=== PATIENT | male | born 1945 | race Caucasian/White ===

== ENCOUNTER 2020-04-17 14:39 | Observation (INO) ==
[2020-04-17 14:51] VITALS: BMI 32.4
--- NOTE | 2020-04-17 15:04 | DR.PSYCH ---
HPI Time Seen Time Seen by Provider: 04/17/20 15:03 PCP Primary Care Physician: SHELL HPI Comment HPI Comment: PATIENT IS 74YR OLD MALE WITH HISTORY OF CAD, HTN AND AND DM IN ER WITH AUDITORY AND VISUAL HALLUCINATIONSTIMES ONE WEEK AND WAS AGGRESSIVE TO HIS YESTERDAY. DENIES TRAUMA, CHEST PAIN OR FEVER. NO HISTORY OF MENTAL HEALTH DISORDER. NO HISTORY OF SUSBSTANCE ABUSE. PATIENTS IN ER WITH HIM AM\ND GIVING HISTORY. Complaint Chief Complaint Doctors Comments: HERE VIA EMS WITH HALLUCINATIONS AND AMS AND BEING AGGRESSIVE TO HIS YESTERDAY. Chief Complaint:: PT. WAS BROUGHT IN PER [facility] WITH C/O AUDITORY AND VISUAL HALLUCINATIONS. PT. BECAME AGGRESSIVE TOWARDS SPOUSE YESTERDAY BUT DOES NOT REMEMBER EVENT. PT. STATES HE HAS BEEN EXPERIENCING THESE HALLUCINATIONS X 1 WEEK. COVID-19 Coronavirus risk:travel/contact w/high risk person: No Has patient experienced Coronavirus symptoms: No Reviewed Nurses Notes Review: Yes Source History Provided: Patient and EMS Mode of Arrival Mode of Arrival: EMS Timing Onset of Chief Complaint: 04/10/20 Came on: Suddenly Duration Duration: Constant Duration: Days Context Ideation: None Plan: None Stressors: None History of: None Quality Quality: None Hallucinations: Visual and Auditory Severity Severity: Able to care for self Associated signs and symptoms Intoxification: None PMH PMH Past Medical History: Yes Past Medical History: Coronary Artery Disease, Diabetes, Dyslipidemia and Hypertension Past Surgical History: Yes Surgical History: Angioplasty/Stents, Appendectomy, Cholecystectomy and Tonsillectomy Family History History of Family Medical Conditions: Yes Family Medical History: Diabetes Mellitus, Coronary Artery Disease and Hypertension Social History Does patient currently use any type of tobacco product: No Have you used tobacco products in the last 12 months: No Type of Tobacco Use: None Does any household member use tobacco: No Alcohol Use: None Do you use any recreational Drugs:: No Lives With: Spouse Lives Where: Home Travel Risk Coronavirus risk:travel/contact w/high risk person: No Has patient experienced Coronavirus symptoms: No Infectious screening In the last 2 months have you had wt loss of >10#?: NO Have you had fever, night sweats or hemotysis?: No Have you traveled outside the country in the last 6 months?: No Isolation: Standard ROS Review of Systems Constitutional: No Symptoms Reported, See HPI, Weakness and Fatigue; negative Fever Eyes: See HPI ENTM: No Symptoms Reported and See HPI; negative Ear Pain (RINGING IN EARS FOR MANY YEARS.), Nose Discharge and Nose Congestion Respiratoy: No Symptoms Reported and See HPI; negative Moist Cough, Short of Breath and Wheezing Cardiovascular: No Symptoms Reported and See HPI; negative Chest Pain and Palpitations Gastrointestinal/Abdominal: No Symptoms Reported and See HPI; negative Abdominal Pain, Diarrhea, Nausea and Vomiting Genitourinary: No Symptoms Reported and See HPI; negative Dysuria, Frequency and Hematuria Neurological: No Symptoms Reported; negative Headache, Weakness and Dizziness Musculoskeletal: See HPI and Back Pain (CHRONIC BACK PAIN WITH INDWELLING STIMULATOR LOWER BACK.) Integumentary: No Symptoms Reported and See HPI; negative Change in Color, Rash and Juandice Hematologic/Lymphatic: See HPI and Easy Bruising; negative Swollen Glands Endocrine: No Symptoms Reported and See HPI; negative Increased Thirst and Inc reased Urine Psychiatric: No Symptoms Reported and See HPI All Other Systems: Reviewed and Negative PE Vitals Vitals: Temperature 97.6 F Pulse Rate 84 Respiratory Rate 17 Blood Pressure 123/89 O2 Sat by Pulse Oximetry 95 General Limitations: No Limitations General Appearance: Alert and In No Apparent Distress Head Head Exam: Normal Inspection and Atraumatic Head Exam Physical: Other (NONE NOTED.) Eyes Eye exam: Normal Appearance, PERRL and EOMI; negative Scleral Icterus and Conjunctival Injection Pupils: Regular, Round: Bilateral and Reactive: Bilateral Sclera/Conjunctival: Normal Inspection: Bilateral ENT ENT Exam: Normal Exam, Normal Oropharynx, Normal External Ear Exam and TM's Normal Bilaterally Neck Neck Exam: Normal Inspection and Trachea Midline; negative Tenderness and Lymphadenopathy Chest Chest Inspection: Normal Inspection and Symmetric Chest Wall Rise; negative Tenderness Respiratory Respiratory Exam: Normal Lung Sounds Bilat; negative Accessory Muscle Use, Chest Wall Tenderness and Respiratory Distress Respiratory Exam: Bilateral: Rhonchi and Lower: Rhonchi Cardiovascular Cardiovascular Exam: Regular Rate, Normal Rhythm and Normal Heart Sounds; negative Systolic Murmur and Diastolic Murmur Abdominal Exam Abdominal Exam: Normal Inspection, Normal Bowel Sounds and Soft; negative Tenderness Extremities Extremities Exam: Normal Inspection and Normal Capillary Refill; negative Tenderness, Edema and Calf Tenderness Back Back Exam: Normal Inspection, Tenderness, Paraspinal Tenderness and Vertebral Tenderness Neurologic Neurological Exam: Alert, Oriented X3 and CN II-XII Intact; negative Motor Sensory Deficit Patient Oriented To: Person, Place and Time Speech: Fluid Speech Cranial Nerve Exam: EOM Function (II, III, IV, ): Normal, Facial Sensation (V): Normal, Facial Palsy (VII): Normal, Gag reflex (XI): Normal and Tongue Deviation: Normal Motor Strength - LUE: 5/5 Motor Strength - RUE: 5/5 Motor Strength - LLE: 5/5 Motor Strength - RLE: 5/5 Upper Motor Neuron Exam: Babinski Sign: Normal Psychiatric Psychiatric Exam: Normal Affect and Normal Mood Expanded Psychiatric Exam: Auditory Hallucinations and Visual Hallucinations Skin Skin Exam: Warm, Dry, Intact and Normal Color MDM Differential Diagnosis Differential diagnosis: Anxiety (HALLUCINATIONS.) COURSE Treatment Treatment: SEE ORDERS. PATIENT DISCUSSED WITH [facility], SEE NURSING NOTE. TO CALL IN AM. PATIENT WILL BE ADMITTED FOR OBSERVATION FOR NEW ONSET A FIB. Consultation Consultation Comments: DISCUSSED PATIENT WITH DR. NIEVES. HE WILL ADMIT PATIENT. Education/Counseling Education/Counseling: Patient and Family Educated On: Diagnosis ROR Labs Reviewed Laboratory Results Reviewed?: Yes Result Diagrams: 04/24/20 04:20 04/24/20 04:20 Laboratory: WBC 5.7 X10^3/uL (3.6-10.0) 04/17/20 15:05 RBC 4.10 X10^6/uL (4.7-6.0) L 04/17/20 15:05 Hgb 14.1 g/dL (13.5-18.0) 04/17/20 15:05 Hct 40.9 % (42.0-54.0) L 04/17/20 15:05 MCV 99.8 fL (80.0-100.0) 04/17/20 15:05 MCH 34.4 pg (27.0-34.0) H 04/17/20 15:05 MCHC 34.5 g/dL (33.0-35.0) 04/17/20 15:05 RDW 13.2 % (11.6-16.5) 04/17/20 15:05 Plt Count 86 X10^3/uL (150.0-450.0) L 04/17/20 15:05 MPV 8.0 fL (7.4-11.0) 04/17/20 15:05 Neut % (Auto) 61.5 % (42.0-75.0) 04/17/20 15:05 Lymph % (Auto) 27.6 % (21.0-51.0) 04/17/20 15:05 [place] % (Auto) 8.3 % (0.0-13.0) 04/17/20 15:05 Eos % (Auto) 1.4 % (0.9-2.9) 04/17/20 15:05 Baso % (Auto) 1.2 % (0.2-1.0) H 04/17/20 15:05 Neut # (Auto) 3.5 x10^3/uL (2.2-4.8) 04/17/20 15:05 Lymph # (Auto) 1.6 X10^3/uL (1.3-2.9) 04/17/20 15:05 [place] # (Auto) 0.5 x10^3/uL (0.3-0.8) 04/17/20 15:05 Eos # (Auto) 0.1 x10^3/uL (0.0-0.2) 04/17/20 15:05 Baso # (Auto) 0.1 X10^3/uL (0.0-0.1) 04/17/20 15:05 Absolute Nucleated RBC 0.0 /100WBC 04/17/20 15:05 Sodium 138 mmol/L (136-145) 04/17/20 15:05 Corrected Sodium 139 mmol/L (136-145) 04/17/20 15:05 Potassium 4.7 mmol/L (3.5-5.1) 04/17/20 15:05 Chloride 103 mmol/L (98-107) 04/17/20 15:05 Carbon Dioxide 28.2 mmol/L (21-32) 04/17/20 15:05 BUN 22 mg/dL (7-18) H 04/17/20 15:05 Creatinine 1.22 mg/dL (0.70-1.30) 04/17/20 15:05 Est GFR (MDRD) Af Amer > 60 (>60) 04/17/20 15:05 Est GFR (MDRD) Non-Af > 60 (>60) 04/17/20 15:05 Glucose 124 mg/dL (65-99) H 04/17/20 15:05 Calcium 8.7 mg/dL (8.5-10.1) 04/17/20 15:05 Corrected Calcium TNP 04/17/20 15:05 Total Bilirubin 1.00 mg/dL (0.2-1.0) 04/17/20 15:05 AST 19 Units/L (15-37) 04/17/20 15:05 ALT 33 Units/L (12-78) 04/17/20 15:05 Alkaline Phosphatase 56 Units/L (46-116) 04/17/20 15:05 Total Protein 6.9 g/dL (6.4-8.2) 04/17/20 15:05 Albumin 4.0 g/dL (3.4-5.0) 04/17/20 15:05 Globulin 2.9 g/dL (2.5-4.5) 04/17/20 15:05 Albumin/Globulin Ratio 1.4 Ratio (1.1-2.1) 04/17/20 15:05 Specimen Type Clean catch urine 04/17/20 15:37 Urine Color Dark yellow (YELLOW) 04/17/20 15:37 Urine Appearance Hazy (CLEAR) 04/17/20 15:37 Urine pH 5.0 (5.0 - 8.0) 04/17/20 15:37 Ur Specific [place] 1.025 (1.000-1.030) 04/17/20 15:37 Urine Protein 3+ (NEGATIVE) 04/17/20 15:37 Urine Glucose (UA) Negative (NEGATIVE) 04/17/20 15:37 Urine Ketones 1+ (NEGATIVE) 04/17/20 15:37 Urine Occult Blood Negative (NEGATIVE) 04/17/20 15:37 Urine Nitrite Negative (NEGATIVE) 04/17/20 15:37 Urine Bilirubin Negative (NEGATIVE) 04/17/20 15:37 Urine Urobilinogen 2+ (NORMAL) 04/17/20 15:37 Ur Leukocyte Esterase 1+ (NEGATIVE) 04/17/20 15:37 Urine RBC 0-2 /HPF (0-3) 04/17/20 15:37 Urine WBC 5-10 /HPF (0-5) A 04/17/20 15:37 Ur Squamous Epith Cells Moderate /HPF (NEGATIVE) 04/17/20 15:37 Calcium Oxalate Crystal Moderate /HPF (NEGATIVE) 04/17/20 15:37 Amorphous Sediment 2+ /HPF (NEGATIVE) 04/17/20 15:37 Urine Bacteria Negative /HPF (NEGATIVE) 04/17/20 15:37 Urine Mucus Moderate /HPF (NEGATIVE) 04/17/20 15:37 Ur Culture Indicated? No/not indicated 04/17/20 15:37 Salicylates < 2.8 mg/dL (2.8-20) L 04/17/20 15:05 Urine Opiates Screen Positive (NEG=<300) 04/17/20 15:37 Urine Methadone Screen Negative (NEG=<300) 04/17/20 15:37 Acetaminophen 0.0 ug/mL (10-30) L 04/17/20 15:05 Ur Barbiturates Screen Negative (NEG=<200) 04/17/20 15:37 Ur Phencyclidine Scrn Negative (NEG=<25) 04/17/20 15:37 Ur Amphetamines Screen Negative (NEG=<1000) 04/17/20 15:37 U Benzodiazepines Scrn Positive (NEG=<200) 04/17/20 15:37 Urine Cocaine Screen Negative (NEG=<300) 04/17/20 15:37 U Marijuana (THC) Screen Negative (NEG=<50) 04/17/20 15:37 Ethyl Alcohol mg/dL < 3 mg/dL (0-19.9) 04/17/20 15:05 SARS CoV-2 RNA Rapid MALIKA Positive (NEGATIVE) A 04/17/20 17:18 XRAY XRAY Interpreted by: Radiologist (REPORTS NOTED AND DISCUSSED WITH PATIENT.) and Self EKG Rate: 87 Rowan: Normal Rhythm: Afib Block: None Hypertrophy: None ST: Normal Opioid Opioid Risk Tool Age (Jah box if 16-45): No History of Preadolescent Sexual Abuse: No Total: 0 Total Score Risk Category: Low Risk Copyright: Jackson MALDONADO predicting aberrant behaviors Diagnosis Discharge Problem: New onset atrial fibrillation, UTI (urinary tract infection), Hallucination Instructions Instructions: Confusion Diabetes Mellitus and Sick Day Management Urinary Tract Infection, Adult, [id number] Atrial Fibrillation, [id number] Forms: Excuse From Work or School Precautions for COVID19 Patient Portal Social Distancing
[2020-04-17 15:14] LABS: BASOPHILS # (AUTO) 0.1 X10^3/uL (0.0-0.1); BASOPHILS % (AUTO) 1.2 % (0.2-1.0); EOSINOPHILS # (AUTO) 0.1 x10^3/uL (0.0-0.2); EOSINOPHILS % (AUTO) 1.4 % (0.9-2.9); HEMATOCRIT 40.9 % (42.0-54.0); HEMOGLOBIN 14.1 g/dL (13.5-18.0); LYMPHOCYTES # (AUTO) 1.6 X10^3/uL (1.3-2.9); LYMPHOCYTES % (AUTO) 27.6 % (21.0-51.0); MEAN CORPUSCULAR HEMOGLOBIN 34.4 pg (27.0-34.0); MEAN CORPUSCULAR HGB CONC 34.5 g/dL (33.0-35.0); MEAN CORPUSCULAR VOLUME 99.8 fL (80.0-100.0); MONOCYTES # (AUTO) 0.5 x10^3/uL (0.3-0.8); MONOCYTES % (AUTO) 8.3 % (0.0-13.0); NEUTROPHILS # (AUTO) 3.5 x10^3/uL (2.2-4.8); NEUTROPHILS % (AUTO) 61.5 % (42.0-75.0); PLATELET COUNT 86 X10^3/uL (150.0-450.0); RED CELL DISTRIBUTION WIDTH 13.2 % (11.6-16.5); WHITE BLOOD COUNT 5.7 X10^3/uL (3.6-10.0)
[2020-04-17 15:26] LABS: ALANINE AMINOTRANSFERASE 33 Units/L (12-78); ALKALINE PHOSPHATASE 56 Units/L (46-116); ASPARTATE AMINO TRANSFERASE 19 Units/L (15-37); BLOOD ALCOHOL < 3 mg/dL (0-19.9); BLOOD UREA NITROGEN 22 mg/dL (7-18); CALCIUM 8.7 mg/dL (8.5-10.1); CARBON DIOXIDE 28.2 mmol/L (21-32); CHLORIDE 103 mmol/L (98-107); COR NA(FOR HYPERGLY) 139 mmol/L (136-145); CREATININE 1.22 mg/dL (0.70-1.30); SODIUM 138 mmol/L (136-145); TOTAL PROTEIN 6.9 g/dL (6.4-8.2); eGFR NON BLACK RACES > 60 (>60)
[2020-04-17 15:30] LABS: SALICYLATE < 2.8 mg/dL (2.8-20)
[2020-04-17 16:28] LABS: BILIRUBIN,URINE NEGATIVE (NEGATIVE); BLOOD/HEMOGLOBIN,URINE NEGATIVE (NEGATIVE); GLUCOSE, URINE NEGATIVE (NEGATIVE); KETONES,URINE 1+ (NEGATIVE); LEUKOCYTE ESTERASE ,URINE 1+ (NEGATIVE); NITRITES,URINE NEGATIVE (NEGATIVE); PROTEIN,URINE 3+ (NEGATIVE); UROBILINOGEN,URINE 2+ (NORMAL)
[2020-04-17 16:42] LABS: APPEARANCE,URINE HAZY (CLEAR); COLOR,URINE DARK YELLOW (YELLOW)
[2020-04-17 16:43] LABS: AMORPHOUS SEDIMENT,UR 2+ /HPF (NEGATIVE); BACTERIA,URINE NEGATIVE /HPF (NEGATIVE); CALCIUM OXALATE CRYSTALS,UR MODERATE /HPF (NEGATIVE); MUCUS,URINE MODERATE /HPF (NEGATIVE); RBC,URINE 0-2 /HPF (0-3); SQUAMOUS EPITHELIAL CELL,UR MODERATE /HPF (NEGATIVE)
[2020-04-17] MEDS ORDERED: NITROSTAT SL PRN (22:18)
[2020-04-17] MEDS ORDERED: NS 1000 ML 1,000 ML ONE (22:24)
[2020-04-17] MEDS: NS 1000 ML 1,000 ML IV SCH (22:29)
[2020-04-17] MEDS: VALIUM PO SCH (23:17)
[2020-04-17] MEDS ORDERED: NS 100 ML IV + SPIKE MINIBAG* 100 ML IV ONE (23:18)
[2020-04-17] MEDS ORDERED: VALIUM ONE (23:18)
[2020-04-17] MEDS ORDERED: ROCEPHIN 1 GRAM IV PREMIX 1 G/50 ML IV.SOLN. IV SCH (23:45)
[2020-04-17 23:50] LABS: CKMB % 2.6 % (<4); CREATINE KINASE 76 Units/L (39-308); TROPONIN I < 0.02 ng/mL (0-1.5)
[2020-04-18 06:09] LABS: BASOPHILS % (AUTO) 0.6 % (0.2-1.0); EOSINOPHILS # (AUTO) 0.2 x10^3/uL (0.0-0.2); EOSINOPHILS % (AUTO) 2.7 % (0.9-2.9); HEMATOCRIT 39.7 % (42.0-54.0); HEMOGLOBIN 13.4 g/dL (13.5-18.0); LYMPHOCYTES # (AUTO) 2.2 X10^3/uL (1.3-2.9); LYMPHOCYTES % (AUTO) 40.6 % (21.0-51.0); MEAN CORPUSCULAR HEMOGLOBIN 33.7 pg (27.0-34.0); MEAN CORPUSCULAR HGB CONC 33.7 g/dL (33.0-35.0); MEAN PLATELET VOLUME 8.5 fL (7.4-11.0); MONOCYTES # (AUTO) 0.5 x10^3/uL (0.3-0.8); MONOCYTES % (AUTO) 8.8 % (0.0-13.0); NEUTROPHILS # (AUTO) 2.6 x10^3/uL (2.2-4.8); NEUTROPHILS % (AUTO) 47.3 % (42.0-75.0); PLATELET COUNT 80 X10^3/uL (150.0-450.0); RED BLOOD COUNT 3.97 X10^6/uL (4.7-6.0); RED CELL DISTRIBUTION WIDTH 13.4 % (11.6-16.5); WHITE BLOOD COUNT 5.5 X10^3/uL (3.6-10.0)
[2020-04-18 06:34] LABS: ALANINE AMINOTRANSFERASE 29 Units/L (12-78); ALBUMIN 3.6 g/dL (3.4-5.0); ALKALINE PHOSPHATASE 45 Units/L (46-116); ASPARTATE AMINO TRANSFERASE 20 Units/L (15-37); BLOOD UREA NITROGEN 19 mg/dL (7-18); CALCIUM 8.7 mg/dL (8.5-10.1); CARBON DIOXIDE 26.6 mmol/L (21-32); CHLORIDE 104 mmol/L (98-107); CKMB % 2.2 % (<4); COR NA(FOR HYPERGLY) 141 mmol/L (136-145); CREATINE KINASE 85 Units/L (39-308); CREATINE KINASE MB 1.9 ng/mL (0-4.0); CREATININE 0.93 mg/dL (0.70-1.30); MAGNESIUM 1.8 mg/dL (1.7-2.9); SODIUM 140 mmol/L (136-145); TOTAL PROTEIN 6.4 g/dL (6.4-8.2); TROPONIN I < 0.02 ng/mL (0-1.5); eGFR NON BLACK RACES > 60 (>60)
[2020-04-18] MEDS ORDERED: MICRO K EXTEN CAP 10 MEQ PO ONE (08:17)
--- NOTE | 2020-04-18 08:49 | RAD ---
HISTORYShortness of breathSTUDYSingle-view chestCOMPARISONNoneFINDINGSThe trachea is midline. The cardiac silhouette is enlarged with a tortuous thoracic aorta. Interstitial lung changes are observed likely chronic in nature. No focal consolidation or effusion can be identified. The bony thorax is unremarkable.IMPRESSIONInterstitial lung changes that appear chronic in nature. No focal infiltrate or effusion can be observed.Electronically signed by: REGGIE CAVANAUGH (Apr 18, 2020 08:47:17)
[2020-04-18] MEDS: ZYLOPRIM PO SCH (08:54)
[2020-04-18] MEDS: ZESTORETIC 10/ 12.5MG PO SCH (08:54)
[2020-04-18] MEDS: MICRO K EXTEN CAP 10 MEQ PO SCH (08:54)
[2020-04-18] MEDS: TAB-A-VITE PO SCH (08:55)
[2020-04-18] MEDS: OSCAL+D or CALTRATE+D PO SCH (08:55)
[2020-04-18] MEDS: AMARYL TAB 4 MG PO SCH (08:55)
[2020-04-18 08:56] LABS: ABG BASE EXCESS 2.6 mmol/L (-2.0-2.0); ABG HCO3 27.2 mmol/L (22-26)
[2020-04-18] MEDS ORDERED: MULTIVIT MIN FA LYCOPEN LUTEIN PO SCH (09:00)
[2020-04-18] MEDS ORDERED: REMDESIVIR 200 MG in NS 250 ML IV 250 ML IV NR (10:21)
[2020-04-18] MEDS ORDERED: REMDESIVIR IV ONE (11:23)
[2020-04-18] MEDS ORDERED: NS 250 ML IV 250 ML IV ONE (11:24)
[2020-04-18] MEDS ORDERED: INVANZ INJ 1 GM VIAL ONE (11:24)
[2020-04-18] MEDS ORDERED: NS 100 ML IV + SPIKE MINIBAG* 100 ML IV ONE (11:28)
--- NOTE | 2020-04-18 11:42 | CT ---
HISTORYAMS, HALLUCINATIONSSTUDYCT brain without IV contrastCOMPARISONNoneTECHNIQUEMultiple axial images of the brain were obtained without IV contrast. Dose reduction techniques including Automated Exposure Control (AEC) and adjustment of mA and kV were utilized.FINDINGSModerate chronic sinusitis changes are seen. No calvarial fracture is seen. No acute intracranial hemorrhage or mass effect is seen. Prominent diffuse volume loss is seen with compensatory enlargement of the ventricular system. No evidence of acute CVA. Mild chronic small vessel ischemic changes are suspected in the bjorn and supratentorial white matter.IMPRESSIONProminent diffuse volume loss in the brain could be from dementia.There are mild chronic small vessel ischemic changes suspected without evidence of acute intracranial abnormality.Moderate chronic sinusitis changes are seen.Electronically signed by: Barron Llanos (Apr 18, 2020 11:40:43)
[2020-04-18] MEDS: INVANZ INJ 1 GM VIAL 1 GM in NS 100 ML IV + SPIKE MINIBAG* 100 ML IV SCH (11:50)
[2020-04-18] MEDS: IVERMECTIN PO SCH (11:51)
--- NOTE | 2020-04-18 12:01 | CT ---
HISTORYCOVID, SOBSTUDYCTA CHESTCOMPARISONChest radiograph from same day.TECHNIQUECTA chest protocol with axial images from the thoracic inlet to upper abdomen with IV contrast. Sagittal and coronal reformats and MIP images were created. Automated exposure control was utilized.FINDINGSThe visualized thyroid gland appears benign. Moderately atherosclerotic normal caliber thoracic aorta. Pulmonary artery is normal in caliber centrally. No filling defect is identified to suggest pulmonary embolism. The heart is enlarged. There is a small pericardial effusion. Severe coronary artery calcifications. No pathologic adenopathy in the thorax there is reflux of contrast into the hepatic veins. Partially visualized spine neurostimulator. No acute osseous abnormality. Left lower lobe area of ground-glass opacity and consolidation in the posterior segment image 80 series 5 and in the superior segment image 56 series 5. Lower lung predominant likely chronic subpleural interstitial opacities. No pleural effusion or pneumothorax.IMPRESSIONNegative for pulmonary embolism. Mild ground-glass opacity and consolidation left lower lobe may represent early changes of COVID 19. Chronic appearing interstitial subpleural opacities bilaterally.Cardiomegaly with severe coronary artery calcifications.Electronically signed by: Hema Caceres (Apr 18, 2020 11:59:48)
[2020-04-18] MEDS: ROCEPHIN VIAL 1 GRAM ONE ×2 (13:17→13:18)
--- NOTE | 2020-04-18 13:28 | DR.H&P ---
H&P - History & Physical for Day of: H&P Date: 04/17/20 - Chief Complaint Chief Complaint: AMS, WEAKNESS, SOB - History of Present Illness History of Present Illness: IS A 74 YEAR OLD W/M. HE IS A PATIENT OF PIA GOFF. HE PRESENTED TO THE ER VIA EMS. SPOUSE REPORTS THAT PATIENT HAS HAD AUDITORY AND VISUAL HALLUCINATIONS. SHE REPORTS THAT HE BECAME AGGESSIVE TOWARDS HER YESTERDAY. PATIENT DENIES KNOWLEDGE OF THE EVENT. SPOUSE REPORTS THAT PATIENT HAS HAD THESE HALLUCINATIONS X 1 WEEK. SHE REPORTS THAT HE HAS ALSO HAD AN INCREASE IN WEAKNESS AND HAS BEEN SHORT OF BREATH AT TIMES. HE APPARENTLY TESTED POSITIVE FOR COVID-19 ON 03/19/20. HE RECEIVED OUTPATIENT TREATMENT AND HAS NOT HAD ANY OTHER SYMPTOMS EXCEPT FOR THE SHORTNESS OF BREATH AT TIMES. HIS PMH INCLUDES: DIABETES MELLITIS II, HYPERCHOLESTEROLEMIA, HTN, CAD, BPH, LUMBAR SPONDYLOSIS, COVID-19. ON ARRIVAL, PATIENT DOES APPEAR TO BE DISORIENTED AND HE HAS INAPPROPRIATE RESPONSES TO QUESTIONS. HE DID NOT APPEAR TO BE IN ANY RESPIRATORY DISTRESS ON ARRIVAL. SPOUSE REPORTS THAT SHE IS UNABLE TO CARE FOR PATIENT IN THE CONDITION THAT HE IS IN AT THIS TIME. ON ARRIVAL, VITALS WERE 97.6-84-17-95%-123/89. LABS WERE OBTAINED. ABNORMAL LAB VALUES INCLUDE THE FOLLOWING: RBC 4.10, HCT 40.9, PLT COUNT 86, BUN 22, GLUCOSE 124. COVID-19 POSITIVE. A URINALYSIS WAS OBTAINED AND REVEALED: WBC 5-10, RBC 0-2, LEUKOCYTES 1+, BACTERIA NEGATIVE, MUCUS MODERATE, PROTEIN 3+, KETONES 1+. AN EKG WAS OBTAINED AND REVEALED: ATRIAL FIBRILLATION WITH HR 87. A CHEST XRAY WAS OBTAINED AND REVEALED: The trachea is midline. The cardiac silhouette is enlarged with a tortuous thoracic aorta. Interstitial lung changes are observed likely chronic in nature. No focal consolidation or effusion can be identified. The bony thorax is unremarkable. PATIENTS SPOUSE REPORTS THAT HE HAS NEVER BEEN DIAGNOSED WITH ATRIAL FIBRILLATION. [facility] THROUGH THE ER, HOWEVER, DUE TO NEW ONSET A-FIB AND COVID, THEY WERE UNABLE TO ACCEPT PATIENT. IN THE ER, HE WAS GIVEN ROCEPHIN 1G IV X 1 DOSE. DECISION WAS MADE TO ADMIT PATIENT FOR FURTHER EVALUATION AND TREATMENT OF NEW ONSET A-FIB, UTI, COVID-19, AND ALTERED MENTAL STATUS. HE WAS STARTED ON NORMAL SALINE AT 50 ML/HR, REMDESIVIR 100MG IV DAILY, INVANZ 1G IV DAILY, IVERMECTIN 21MG PO Q72H, AND LOVENOX. HIS HOME MEDICATIONS OF ALLOPURINOL 100MG PO DAILY, ASA 81MG PH HS, VALIUM 10MG PO HS, AVODART 0.5MG PO HS, AMARYL 4MG PO DAILY, NORCO 1 TAB PO Q6H PRN, ZESTORETIC 1 TAB PO DAILY, TOPROL XL 50MG PO HS, MULTI VITAMIN DAILY, NITROSTAT 0.4MG SL Q5M PRN, MICRO K 10MEQ PO DAILY, ZOCOR 20MG PO HS, AND FLOMAX 0.4MG PO HS WERE RESUMED. WE WILL OBTAIN A CHEST CTA, ABG, AND A BRAIN CT DUE TO ACUTE AMS. OTHERWISE, WE PLAN TO FOLLOW UP WITH AM LABS, CHEST XRAY, AND CONTINUE TO MONITOR. TIME SPENT ON CLINICAL ASSESSMENT, REVIEWING LABS AND IMAGING, DECISION MAKING, AND DOCUMENTATION GREATER THAN 75 MINUTES. - Past Medical History Past Medical History: Coronary Artery Disease, Hypertension, Dyslipidemia, Diabetes - Past Surgical History Surgical History: Angioplasty/Stents, Appendectomy, Cholecystectomy, Tonsillectomy - Family History Family Medical History: Diabetes Mellitus, Coronary Artery Disease, Hypertension - Social History Does patient currently use any type of tobacco product: No Have you used tobacco products in the last 12 months: No Type of Tobacco Use: None Does any household member use tobacco: No Alcohol Use: Occasionally Drug Use: None - Medications Home Medications: No Known Drug Allergies Allergy (Verified 04/17/20 14:52) CONTINUE taking the following medications allopurinol 100 mg PO DAILY 04/17/20 [History] aspirin [Aspir-81] 81 mg PO HS 04/17/20 [History] calcium carbonate [Justo-600] 600 mg PO DAILY 04/17/20 [History] diazepam [Valium] 10 mg PO HS 04/17/20 [History] dutasteride [Avodart] 0.5 mg PO HS 04/17/20 [History] glimepiride 4 mg PO QAM 04/17/20 [History] hydrocodone-acetaminophen 1 tab PO Q6H PRN 04/17/20 [History] lisinopril-hydrochlorothiazide 1 tab PO DAILY 04/17/20 [History] metoprolol succinate [Toprol XL] 50 mg PO HS 04/17/20 [History] dczodvji-vqm-IM-lycopen-lutein [Centrum Silver Men] 1 tab PO DAILY 04/17/20 [History] nitroglycerin 0.4 mg SUBLINGUAL Q5M PRN 04/17/20 [History] potassium chloride 10 meq PO DAILY 04/17/20 [History] simvastatin 20 mg PO HS 04/17/20 [History] tamsulosin [Flomax] 0.4 mg PO HS 04/17/20 [History] - Review of Systems Constitutional: Weakness Eyes: No Symptoms Reported ENT: No Symptoms Reported Respiratory: Shortness of Breath Cardiovascular: No Symptoms Reported Gastrointestinal: No Symptoms Reported Genitourinary: No Symptoms Reported Musculoskeletal: No Symptoms Reported Skin: No Symptoms Reported Neurological: Weakness, Confusion - Physical Exam Vital Signs: Temperature 98.1 F Pulse Rate [Left Radial] 98 Pulse Rate 92 Respiratory Rate 28 Blood Pressure [Left Arm] 139/68 Blood Pressure 148/83 O2 Sat by Pulse Oximetry 96 Oriented: Not Oriented Eyes: Normal Ear: Normal Nose: Normal Throat: Normal Respiratory: Diminished Throughout Cardiovascular: Normal : Normal Auscultation: Bowel Sounds: Normal Palpation: Normal Tenderness: Normal Skin: Normal Musculoskeletal: Normal Psychiatric: Other (DISORIENTATION ) Mood Description: Calm Affect: Normal Speech Pattern: Inappropriate - Assessment/Plan (1) COVID-19 Status: Acute Plan: ADMIT, SUPPLEMENTAL OXYGEN, NORMAL SALINE AT 50 ML/HR, REMDESIVIR 100MG IV DAILY, INVANZ 1G IV DAILY, IVERMECTIN 21MG PO Q72H, LOVENOX, RESUME HOME MEDS (2) New onset atrial fibrillation Status: Acute Plan: POST SPLITTER, RESUME METOPROLOL, CONTINUE TO MONITOR (3) Urinary tract infection Qualifiers: Urinary tract infection type: acute cystitis Hematuria presence: without hematuria Qualified Code(s): N30.00 - Acute cystitis without hematuria Status: Acute (4) Altered mental status Qualifiers: Altered mental status type: transient alteration of awareness Qualified Code(s): R40.4 - Transient alteration of awareness Status: Acute - Allergies Allergies/Adverse Reactions: Allergies Allergy/AdvReac Type Severity Reaction Status Date / Time No Known Drug Allergies Allergy Verified 04/17/20 14:52
[2020-04-18] MEDS: SOLU-Medrol 40 MG VIAL IVP SCH ×2 (14:58→22:18)
[2020-04-18] MEDS: DUONEB 0.5 MG/3 MG (3 mL) NEB SCH ×2 (17:00→20:20)
[2020-04-18] MEDS: NS 1000 ML 1,000 ML IV SCH (18:03)
[2020-04-18] MEDS: ASPIRIN EC 81 MG PO SCH ×3 (20:47→22:54)
[2020-04-18] MEDS: SEROquel TAB 25 mg PO SCH ×3 (20:48→22:55)
[2020-04-18] MEDS: FLOMAX PO SCH ×3 (20:48→22:55)
[2020-04-18] MEDS: AVODART PO SCH ×3 (20:48→22:55)
[2020-04-18] MEDS: ZOCOR TAB 20 MG PO SCH ×3 (20:49→22:56)
[2020-04-18] MEDS: TOPROL XL PO SCH ×3 (20:49→22:56)
[2020-04-18] MEDS ORDERED: ROCEPHIN 1 GRAM IV PREMIX 1 G/50 ML IV.SOLN. IV SCH (21:00)
[2020-04-18] MEDS ORDERED: ATIVAN INJ 2 MG VIAL ONE (21:07)
[2020-04-18] MEDS: ATIVAN INJ 2 MG VIAL IVP PRN (21:11)
[2020-04-18] MEDS: VALIUM PO SCH (22:16)
[2020-04-18] MEDS: SNACK - Diabetic Appropriate PO SCH (22:17)
[2020-04-19] MEDS ORDERED: NS 1000 ML 1,000 ML ONE (01:26)
[2020-04-19] MEDS: NS 1000 ML 1,000 ML IV SCH ×2 (01:29→13:01)
[2020-04-19 04:56] LABS: BASOPHILS % (AUTO) 0.8 % (0.2-1.0); HEMATOCRIT 43.3 % (42.0-54.0); HEMOGLOBIN 14.6 g/dL (13.5-18.0); LYMPHOCYTES # (AUTO) 0.9 X10^3/uL (1.3-2.9); LYMPHOCYTES % (AUTO) 17.8 % (21.0-51.0); MEAN CORPUSCULAR HEMOGLOBIN 33.9 pg (27.0-34.0); MEAN CORPUSCULAR HGB CONC 33.7 g/dL (33.0-35.0); MEAN CORPUSCULAR VOLUME 100.8 fL (80.0-100.0); MEAN PLATELET VOLUME 8.6 fL (7.4-11.0); MONOCYTES # (AUTO) 0.1 x10^3/uL (0.3-0.8); MONOCYTES % (AUTO) 1.2 % (0.0-13.0); NEUTROPHILS % (AUTO) 80.2 % (42.0-75.0); PLATELET COUNT 88 X10^3/uL (150.0-450.0); RED CELL DISTRIBUTION WIDTH 13.4 % (11.6-16.5)
[2020-04-19 05:12] LABS: ALANINE AMINOTRANSFERASE 28 Units/L (12-78); ALBUMIN 3.7 g/dL (3.4-5.0); ALKALINE PHOSPHATASE 49 Units/L (46-116); ASPARTATE AMINO TRANSFERASE 21 Units/L (15-37); BLOOD UREA NITROGEN 18 mg/dL (7-18); CALCIUM 8.9 mg/dL (8.5-10.1); CARBON DIOXIDE 30.1 mmol/L (21-32); CHLORIDE 104 mmol/L (98-107); COR NA(FOR HYPERGLY) 144 mmol/L (136-145); CREATININE 1.01 mg/dL (0.70-1.30); SODIUM 141 mmol/L (136-145); eGFR NON BLACK RACES > 60 (>60)
--- NOTE | 2020-04-19 05:46 | RAD ---
HISTORYSOBSTUDYAP chestCOMPARISONFebruary 2020FINDINGSSimilar appearance of cardiomegaly and aortic dilatation. The lungs are clear of active appearing disease. The right hilum and medial lung partly obscured by patient rotation. A neurostimulator device is noted in the thoracic spinal canal.IMPRESSIONNo change; no acute chest findings.Electronically signed by: JACQUELINE POLK (Apr 19, 2020 05:44:48)
[2020-04-19] MEDS: SOLU-Medrol 40 MG VIAL IVP SCH ×3 (05:48→21:08)
[2020-04-19] MEDS: HumuLIN R SUBCUT PRN ×3 (06:34→20:03)
[2020-04-19] MEDS ORDERED: HumuLIN R ONE (06:35)
[2020-04-19] MEDS ORDERED: DUONEB 0.5 MG/3 MG (3 mL) NEB ONE (08:41)
[2020-04-19] MEDS: DUONEB 0.5 MG/3 MG (3 mL) NEB SCH ×4 (09:23→20:06)
[2020-04-19] MEDS: AMARYL TAB 4 MG PO SCH (09:48)
[2020-04-19] MEDS: INVANZ INJ 1 GM VIAL 1 GM in NS 100 ML IV + SPIKE MINIBAG* 100 ML IV SCH (09:48)
[2020-04-19] MEDS: MICRO K EXTEN CAP 10 MEQ PO SCH (09:49)
[2020-04-19] MEDS: REMDESIVIR 100 MG in NS 250 ML IV 250 ML IV SCH (09:49)
[2020-04-19] MEDS: OSCAL+D or CALTRATE+D PO SCH (09:49)
[2020-04-19] MEDS: TAB-A-VITE PO SCH (09:49)
[2020-04-19] MEDS: ZESTORETIC 10/ 12.5MG PO SCH (09:50)
[2020-04-19] MEDS: ZYLOPRIM PO SCH (09:50)
[2020-04-19] MEDS: NORCO 10/325 TAB PO PRN (10:07)
--- NOTE | 2020-04-19 11:51 | PCM.PROG ---
Progress Note Progress Note for Day of Date of Exam: 04/19/20 Subjective Subjective: PT IS A 74 YEAR OLD MALE PAST MEDICAL HISTORY HYPERTENSION, DIABETES MELLITIS II, BPH, LUMBAR SPONDYLOSIS ADMITTED FOR COVID-19 PNEUMONIA (POSITIVE 03/19/20), NEW ONSET ATRIAL FIBRILLATION, ALTERED MENTAL STATUS WITH AUDITORY AND VISUAL HALLUCINATIONS, AND UTI. OVERNIGHT PATIENT BECAME AGGRESSIVE REQUIRING RESTRAINTS, SEROQUEL 25MG ORDERED NIGHTLY THAT ALLOWED PATIENT TO GET REST AT NIGHT. THIS MORNING HE REMAINS DISORIENTED WITH INAPPROPRIATE RESPONSES TO QUESTIONS. HE DID NOT APPEAR TO BE IN RESPIRATORY DISTRESS BUT IS REQUIRING 2L NASAL CANNULA SUPPLEMENTAL O2. LABS/IMAGING: WBC 5, HGB 14.6, PLT 88, NA 141, K 4.9, CR 1.01, GLUCOSE 236, CTA: Negative for pulmonary embolism. Mild ground- glass opacity and consolidation left lower lobe may represent early changes of COVID 19. Chronic appearing interstitial subpleural opacities bilaterally.Cardiomegaly with severe coronary artery calcifications. CXR No change; no acute chest findings. CT BRAIN: Prominent diffuse volume loss in the brain could be from dementia. There are mild chronic small vessel ischemic changes suspected without evidence of acute intracranial abnormality. Moderate chronic sinusitis changes are seen. TREATMENT COURSE INCLUDES: NORMAL SALINE AT 50 ML/HR, REMDESIVIR 100MG IV DAILY, INVANZ 1G IV DAILY, IVERMECTIN 21MG PO Q72H, AND LOVENOX. HIS HOME MEDICATIONS OF ALLOPURINOL 100MG PO DAILY, ASA 81MG PH HS, VALIUM 10MG PO HS, AVODART 0.5MG PO HS, AMARYL 4MG PO DAILY, NORCO 1 TAB PO Q6H PRN, ZESTORETIC 1 TAB PO DAILY, TOPROL XL 50MG PO HS, MULTI VITAMIN DAILY, NITROSTAT 0.4MG SL Q5M PRN, MICRO K 10MEQ PO DAILY, ZOCOR 20MG PO HS, AND FLOMAX 0.4MG PO HS. WILL CONTINUE WITH CURRENT TREATMENT PLAN. CONTINUE TO MONITOR AND FOLLOW UP LABS/IMAGING IN THE MORNING. TIME SPENT ON CLINICAL ASSESSMENT, REVIEWING LABS AND IMAGING, DECISION MAKING, AND DOCUMENTATION GREATER THAN 45 MINUTES. Past Medical Family Social History Past Med/Fam/Surg Hx: No changes since H&P Allergies: Allergies No Known Drug Allergies Allergy (Verified 04/17/20 14:52) Review of Systems ROS: No change since H&P Vital Signs and I&O's Vital Signs: Temperature 97.8 F Pulse Rate [Left Radial] 103 Pulse Rate 93 Respiratory Rate 22 Blood Pressure [Left Arm] 132/74 Blood Pressure 148/83 O2 Sat by Pulse Oximetry 98 Intake and Output: Intake & Output 04/16/20 04/17/20 04/18/20 04/19/20 23:59 23:59 23:59 23:59 Intake Total 0 / 0 1583 / 1583 373 / 373 Output Total 900 / 900 Balance 0 / 0 683 / 683 373 / 373 Physical Exam Oriented: Not Oriented Eyes: Normal Ear: Normal Nose: Normal Throat: Normal Cardiovascular: Normal : Normal Auscultation: Bowel Sounds: Normal Tenderness: Normal Skin: Normal Musculoskeletal: Normal Psychiatric: Other (DISORIENTATION ) Mood Description: Calm Speech Pattern: Clear Laboratory and Diagnostics Result Diagrams: 04/19/20 04:20 04/19/20 04:20 Labs: Laboratory WBC 5.0 X10^3/uL (3.6-10.0) 04/19/20 04:20 RBC 4.30 X10^6/uL (4.7-6.0) L 04/19/20 04:20 Hgb 14.6 g/dL (13.5-18.0) 04/19/20 04:20 Hct 43.3 % (42.0-54.0) 04/19/20 04:20 MCV 100.8 fL (80.0-100.0) H 04/19/20 04:20 MCH 33.9 pg (27.0-34.0) 04/19/20 04:20 MCHC 33.7 g/dL (33.0-35.0) 04/19/20 04:20 RDW 13.4 % (11.6-16.5) 04/19/20 04:20 Plt Count 88 X10^3/uL (150.0-450.0) L 04/19/20 04:20 MPV 8.6 fL (7.4-11.0) 04/19/20 04:20 Neut % (Auto) 80.2 % (42.0-75.0) H 04/19/20 04:20 Lymph % (Auto) 17.8 % (21.0-51.0) L 04/19/20 04:20 [place] % (Auto) 1.2 % (0.0-13.0) 04/19/20 04:20 Eos % (Auto) 0.0 % (0.9-2.9) L 04/19/20 04:20 Baso % (Auto) 0.8 % (0.2-1.0) 04/19/20 04:20 Neut # (Auto) 4.0 x10^3/uL (2.2-4.8) 04/19/20 04:20 Lymph # (Auto) 0.9 X10^3/uL (1.3-2.9) L 04/19/20 04:20 [place] # (Auto) 0.1 x10^3/uL (0.3-0.8) L 04/19/20 04:20 Eos # (Auto) 0.0 x10^3/uL (0.0-0.2) 04/19/20 04:20 Baso # (Auto) 0.0 X10^3/uL (0.0-0.1) 04/19/20 04:20 Absolute Nucleated RBC 0.0 /100WBC 04/19/20 04:20 PT 14.4 SECONDS (11.8-14.3) 04/18/20 04:30 INR Target Range - 04/18/20 04:30 INR 1.16 (0.8-1.3) 04/18/20 04:30 APTT 29.2 SECONDS (22.9-36.5) 04/18/20 04:30 PTT Comment - 04/18/20 04:30 D-Dimer 0.44 ug/ml (0.0-0.57) 04/18/20 04:30 Sample Site Rb 04/18/20 08:50 ABG pH 7.430 (7.35-7.45) 04/18/20 08:50 ABG pCO2 41.0 mmHg (35.0-45.0) 04/18/20 08:50 ABG pO2 83.0 mmHg (80.0-100.0) 04/18/20 08:50 ABG HCO3 27.2 mmol/L (22-26) H 04/18/20 08:50 ABG O2 Saturation 96.0 % (90-100) 04/18/20 08:50 ABG Base Excess 2.6 mmol/L (-2.0-2.0) H 04/18/20 08:50 Alon Test N/a 04/18/20 08:50 A-a Gradient 15.0 mmHg 04/18/20 08:50 FiO2 21.0 04/18/20 08:50 Blood Gas Comments Pt андрей well elj 04/18/20 08:50 Sodium 141 mmol/L (136-145) 04/19/20 04:20 Corrected Sodium 144 mmol/L (136-145) 04/19/20 04:20 Potassium 4.9 mmol/L (3.5-5.1) 04/19/20 04:20 Chloride 104 mmol/L (98-107) 04/19/20 04:20 Carbon Dioxide 30.1 mmol/L (21-32) 04/19/20 04:20 BUN 18 mg/dL (7-18) 04/19/20 04:20 Creatinine 1.01 mg/dL (0.70-1.30) 04/19/20 04:20 Est GFR (MDRD) Af Amer > 60 (>60) 04/19/20 04:20 Est GFR (MDRD) Non-Af > 60 (>60) 04/19/20 04:20 Glucose 236 mg/dL (65-99) H 04/19/20 04:20 POC Glucose (mg/dL) 243 mg/dL (65-99) H 04/19/20 11:36 Calcium 8.9 mg/dL (8.5-10.1) 04/19/20 04:20 Corrected Calcium TNP 04/19/20 04:20 Magnesium 1.8 mg/dL (1.7-2.9) 04/18/20 04:30 Ferritin 349 ng/mL (26-388) 04/18/20 04:30 Total Bilirubin 0.80 mg/dL (0.2-1.0) 04/19/20 04:20 AST 21 Units/L (15-37) 04/19/20 04:20 ALT 28 Units/L (12-78) 04/19/20 04:20 Alkaline Phosphatase 49 Units/L (46-116) 04/19/20 04:20 Creatine Kinase 85 Units/L (39-308) 04/18/20 04:30 CK-MB (CK-2) 1.9 ng/mL (0-4.0) 04/18/20 04:30 CK/CKMB % Calc 2.2 % (<4) 04/18/20 04:30 Troponin I < 0.02 ng/mL (0-1.5) 04/18/20 04:30 C-Reactive Protein 7.00 mg/L (0-3.0) H 04/19/20 04:20 B-Natriuretic Peptide 249 pg/mL (0-79) H 04/18/20 04:30 Total Protein 7.0 g/dL (6.4-8.2) 04/19/20 04:20 Albumin 3.7 g/dL (3.4-5.0) 04/19/20 04:20 Globulin 3.3 g/dL (2.5-4.5) 04/19/20 04:20 Albumin/Globulin Ratio 1.1 Ratio (1.1-2.1) 04/19/20 04:20 Specimen Type Clean catch urine 04/17/20 15:37 Urine Color Dark yellow (YELLOW) 04/17/20 15:37 Urine Appearance Hazy (CLEAR) 04/17/20 15:37 Urine pH 5.0 (5.0 - 8.0) 04/17/20 15:37 Ur Specific [place] 1.025 (1.000-1.030) 04/17/20 15:37 Urine Protein 3+ (NEGATIVE) 04/17/20 15:37 Urine Glucose (UA) Negative (NEGATIVE) 04/17/20 15:37 Urine Ketones 1+ (NEGATIVE) 04/17/20 15:37 Urine Occult Blood Negative (NEGATIVE) 04/17/20 15:37 Urine Nitrite Negative (NEGATIVE) 04/17/20 15:37 Urine Bilirubin Negative (NEGATIVE) 04/17/20 15:37 Urine Urobilinogen 2+ (NORMAL) 04/17/20 15:37 Ur Leukocyte Esterase 1+ (NEGATIVE) 04/17/20 15:37 Urine RBC 0-2 /HPF (0-3) 04/17/20 15:37 Urine WBC 5-10 /HPF (0-5) A 04/17/20 15:37 Ur Squamous Epith Cells Moderate /HPF (NEGATIVE) 04/17/20 15:37 Calcium Oxalate Crystal Moderate /HPF (NEGATIVE) 04/17/20 15:37 Amorphous Sediment 2+ /HPF (NEGATIVE) 04/17/20 15:37 Urine Bacteria Negative /HPF (NEGATIVE) 04/17/20 15:37 Urine Mucus Moderate /HPF (NEGATIVE) 04/17/20 15:37 Ur Culture Indicated? No/not indicated 04/17/20 15:37 Salicylates < 2.8 mg/dL (2.8-20) L 04/17/20 15:05 Urine Opiates Screen Positive (NEG=<300) 04/17/20 15:37 Urine Methadone Screen Negative (NEG=<300) 04/17/20 15:37 Acetaminophen 0.0 ug/mL (10-30) L 04/17/20 15:05 Ur Barbiturates Screen Negative (NEG=<200) 04/17/20 15:37 Ur Phencyclidine Scrn Negative (NEG=<25) 04/17/20 15:37 Ur Amphetamines Screen Negative (NEG=<1000) 04/17/20 15:37 U Benzodiazepines Scrn Positive (NEG=<200) 04/17/20 15:37 Urine Cocaine Screen Negative (NEG=<300) 04/17/20 15:37 U Marijuana (THC) Screen Negative (NEG=<50) 04/17/20 15:37 Ethyl Alcohol mg/dL < 3 mg/dL (0-19.9) 04/17/20 15:05 SARS CoV-2 RNA Rapid MALIKA Positive (NEGATIVE) A 04/17/20 17:18 Plan (1) COVID-19: Status: Acute Plan: ADMIT, SUPPLEMENTAL OXYGEN, NORMAL SALINE AT 50 ML/HR, REMDESIVIR 100MG IV DAILY, INVANZ 1G IV DAILY, IVERMECTIN 21MG PO Q72H, LOVENOX, RESUME HOME MEDS (2) New onset atrial fibrillation: Status: Acute Plan: MOLD SPRAYER, RESUME METOPROLOL, CONTINUE TO MONITOR (3) Urinary tract infection: Status: Acute Qualifiers: Hematuria presence: without hematuria Urinary tract infection type: acute cystitis Qualified Code(s): N30.00 - Acute cystitis without hematuria (4) Altered mental status: Status: Acute Qualifiers: Altered mental status type: transient alteration of awareness Qualified Code(s): R40.4 - Transient alteration of awareness
[2020-04-19] MEDS ORDERED: MAALOX or MYLANTA PO PRN (17:05)
[2020-04-19] MEDS ORDERED: MAALOX or MYLANTA ONE (17:31)
[2020-04-19] MEDS: SNACK - Diabetic Appropriate PO SCH ×2 (19:21→19:22)
[2020-04-19] MEDS: AVODART PO SCH (20:04)
[2020-04-19] MEDS: FLOMAX PO SCH (20:04)
[2020-04-19] MEDS: ASPIRIN EC 81 MG PO SCH (20:04)
[2020-04-19] MEDS: TOPROL XL PO SCH (20:05)
[2020-04-19] MEDS: ZOCOR TAB 20 MG PO SCH (20:05)
[2020-04-19] MEDS: SEROquel TAB 25 mg PO SCH (20:05)
[2020-04-19] MEDS: VALIUM PO SCH (20:05)
[2020-04-20] MEDS: NS 1000 ML 1,000 ML IV SCH ×2 (03:01→15:08)
[2020-04-20 04:55] LABS: BASOPHILS % (AUTO) 0.1 % (0.2-1.0); HEMATOCRIT 39.2 % (42.0-54.0); HEMOGLOBIN 13.2 g/dL (13.5-18.0); LYMPHOCYTES # (AUTO) 0.8 X10^3/uL (1.3-2.9); LYMPHOCYTES % (AUTO) 8.7 % (21.0-51.0); MEAN CORPUSCULAR HGB CONC 33.6 g/dL (33.0-35.0); MEAN PLATELET VOLUME 8.6 fL (7.4-11.0); MONOCYTES # (AUTO) 0.3 x10^3/uL (0.3-0.8); MONOCYTES % (AUTO) 3.2 % (0.0-13.0); NEUTROPHILS # (AUTO) 7.6 x10^3/uL (2.2-4.8); PLATELET COUNT 105 X10^3/uL (150.0-450.0); RED BLOOD COUNT 3.88 X10^6/uL (4.7-6.0); RED CELL DISTRIBUTION WIDTH 13.4 % (11.6-16.5); WHITE BLOOD COUNT 8.7 X10^3/uL (3.6-10.0)
[2020-04-20 05:04] LABS: ALANINE AMINOTRANSFERASE 24 Units/L (12-78); ALBUMIN 3.3 g/dL (3.4-5.0); ALKALINE PHOSPHATASE 49 Units/L (46-116); ASPARTATE AMINO TRANSFERASE 18 Units/L (15-37); BLOOD UREA NITROGEN 27 mg/dL (7-18); CALCIUM 8.5 mg/dL (8.5-10.1); CARBON DIOXIDE 25.7 mmol/L (21-32); CHLORIDE 105 mmol/L (98-107); COR CA(FOR HYPOALB) 9.1 mg/dL (8.5-10.1); COR NA(FOR HYPERGLY) 142 mmol/L (136-145); CREATININE 1.04 mg/dL (0.70-1.30); SODIUM 139 mmol/L (136-145); TOTAL PROTEIN 6.1 g/dL (6.4-8.2); eGFR NON BLACK RACES > 60 (>60)
--- NOTE | 2020-04-20 05:49 | RAD ---
PROCEDURE: Chest X-ray 1 View .HISTORY: Short of breath.TECHNIQUE: AP view .COMPARISON: 04/19/2020.TECHNICAL QUALITY: Satisfactory .FINDINGS:Unchanged mild cardiac enlargement with prominent right heart border.Mediastinum and hilar regions show no masses or lymphadenopathy .Normal central vascularity .No pulmonary consolidation, masses, pleural fluid, or pneumothorax .No acute bony abnormality .IMPRESSION:1. Unchanged mild cardiac enlargement.2. No other evidence of active disease.Electronically signed by: Alexis Escobar (Apr 20, 2020 05:47:45)
[2020-04-20] MEDS: SOLU-Medrol 40 MG VIAL IVP SCH ×3 (05:54→22:00)
[2020-04-20] MEDS: HumuLIN R SUBCUT PRN ×2 (05:55→11:55)
[2020-04-20] MEDS: DUONEB 0.5 MG/3 MG (3 mL) NEB SCH ×4 (08:39→21:24)
[2020-04-20] MEDS: AMARYL TAB 4 MG PO SCH (09:41)
[2020-04-20] MEDS: MICRO K EXTEN CAP 10 MEQ PO SCH (09:41)
[2020-04-20] MEDS: INVANZ INJ 1 GM VIAL 1 GM in NS 100 ML IV + SPIKE MINIBAG* 100 ML IV SCH (09:41)
[2020-04-20] MEDS: REMDESIVIR 100 MG in NS 250 ML IV 250 ML IV SCH (09:42)
[2020-04-20] MEDS: TAB-A-VITE PO SCH (09:42)
[2020-04-20] MEDS: OSCAL+D or CALTRATE+D PO SCH (09:42)
[2020-04-20] MEDS: ZESTORETIC 10/ 12.5MG PO SCH (09:42)
[2020-04-20] MEDS: ZYLOPRIM PO SCH (09:42)
--- NOTE | 2020-04-20 11:11 | PCM.PROG ---
Progress Note Progress Note for Day of Date of Exam: 04/20/20 Subjective Subjective: PT IS A 74 YEAR OLD MALE PAST MEDICAL HISTORY HYPERTENSION, DIABETES MELLITIS II, BPH, LUMBAR SPONDYLOSIS ADMITTED FOR COVID-19 PNEUMONIA (POSITIVE 03/19/20), NEW ONSET ATRIAL FIBRILLATION, ALTERED MENTAL STATUS WITH AUDITORY AND VISUAL HALLUCINATIONS, AND UTI. PT IS RESTING COMFORTABLY IN BED THIS MORNING. HE REPORTS HALLUCINATION OF A WOMAN IN HIS ROOM HIDING IN A CLOSET. NO ACUTE EVENTS OVERNIGHT. HE IS CURRENTLY ON ROOM AIR WITH GOOD OXYGENATION. LABS/IMAGING: WBC 8.7, HGB 13.2, PLT 105, NA 139, K 4.4, CR 1.04, GLUCOSE 234, CRP 2.4, AST 18, ALT 24, ALKP 49, CXR: 1.Unchanged mild cardiac enlargement. 2. No other evidence of active disease. TREATMENT COURSE INCLUDES: NORMAL SALINE AT 50 ML/HR, REMDESIVIR 100MG IV DAILY, INVANZ 1G IV DAILY, IVERMECTIN 21MG PO Q72H, AND LOVENOX. HIS HOME MEDICATIONS OF ALLOPURINOL 100MG PO DAILY, ASA 81MG PH HS, VALIUM 10MG PO HS, AVODART 0.5MG PO HS, AMARYL 4MG PO DAILY, NORCO 1 TAB PO Q6H PRN, ZESTORETIC 1 TAB PO DAILY, TOPROL XL 50MG PO HS, MULTI VITAMIN DAILY, NITROSTAT 0.4MG SL Q5M PRN, MICRO K 10MEQ PO DAILY, ZOCOR 20MG PO HS, FLOMAX 0.4MG PO HS, SEROQUEL 25MG QHS. CONTINUE WITH CURRENT TREATMENT PLAN. MONITOR AND FOLLOW UP LABS/IMAGING IN THE MORNING. Past Medical Family Social History Past Med/Fam/Surg Hx: No changes since H&P Allergies: Allergies No Known Drug Allergies Allergy (Verified 04/17/20 14:52) Review of Systems ROS: No change since H&P Vital Signs and I&O's Vital Signs: Temperature 97.8 F Pulse Rate [Left Radial] 109 Pulse Rate 104 Respiratory Rate 24 Blood Pressure [Left Arm] 106/66 Blood Pressure 148/83 O2 Sat by Pulse Oximetry 94 Intake and Output: Intake & Output 04/17/20 04/18/20 04/19/20 04/20/20 23:59 23:59 23:59 23:59 Intake Total 0 / 0 1583 / 1583 1507 / 1507 465 / 465 Output Total 900 / 900 325 / 325 Balance 0 / 0 683 / 683 1507 / 1507 140 / 140 Physical Exam Oriented: Not Oriented Eyes: Normal Ear: Normal Nose: Normal Throat: Normal Respiratory: Normal Cardiovascular: Normal : Normal Auscultation: Bowel Sounds: Normal Tenderness: Normal Skin: Normal Musculoskeletal: Normal Psychiatric: Other (DISORIENTATION ) Mood Description: Calm Affect: Normal Speech Pattern: Clear and Appropriate Laboratory and Diagnostics Result Diagrams: 04/20/20 04:15 04/20/20 04:15 Labs: Laboratory WBC 8.7 X10^3/uL (3.6-10.0) 04/20/20 04:15 RBC 3.88 X10^6/uL (4.7-6.0) L 04/20/20 04:15 Hgb 13.2 g/dL (13.5-18.0) L 04/20/20 04:15 Hct 39.2 % (42.0-54.0) L 04/20/20 04:15 MCV 101.0 fL (80.0-100.0) H 04/20/20 04:15 MCH 34.0 pg (27.0-34.0) 04/20/20 04:15 MCHC 33.6 g/dL (33.0-35.0) 04/20/20 04:15 RDW 13.4 % (11.6-16.5) 04/20/20 04:15 Plt Count 105 X10^3/uL (150.0-450.0) L 04/20/20 04:15 MPV 8.6 fL (7.4-11.0) 04/20/20 04:15 Neut % (Auto) 88.0 % (42.0-75.0) H 04/20/20 04:15 Lymph % (Auto) 8.7 % (21.0-51.0) L 04/20/20 04:15 [place] % (Auto) 3.2 % (0.0-13.0) 04/20/20 04:15 Eos % (Auto) 0.0 % (0.9-2.9) L 04/20/20 04:15 Baso % (Auto) 0.1 % (0.2-1.0) L 04/20/20 04:15 Neut # (Auto) 7.6 x10^3/uL (2.2-4.8) H 04/20/20 04:15 Lymph # (Auto) 0.8 X10^3/uL (1.3-2.9) L 04/20/20 04:15 [place] # (Auto) 0.3 x10^3/uL (0.3-0.8) 04/20/20 04:15 Eos # (Auto) 0.0 x10^3/uL (0.0-0.2) 04/20/20 04:15 Baso # (Auto) 0.0 X10^3/uL (0.0-0.1) 04/20/20 04:15 Absolute Nucleated RBC 0.0 /100WBC 04/20/20 04:15 PT 14.4 SECONDS (11.8-14.3) 04/18/20 04:30 INR Target Range - 04/18/20 04:30 INR 1.16 (0.8-1.3) 04/18/20 04:30 APTT 29.2 SECONDS (22.9-36.5) 04/18/20 04:30 PTT Comment - 04/18/20 04:30 D-Dimer 0.44 ug/ml (0.0-0.57) 04/18/20 04:30 Sample Site [facility] 04/18/20 08:50 ABG pH 7.430 (7.35-7.45) 04/18/20 08:50 ABG pCO2 41.0 mmHg (35.0-45.0) 04/18/20 08:50 ABG pO2 83.0 mmHg (80.0-100.0) 04/18/20 08:50 ABG HCO3 27.2 mmol/L (22-26) H 04/18/20 08:50 ABG O2 Saturation 96.0 % (90-100) 04/18/20 08:50 ABG Base Excess 2.6 mmol/L (-2.0-2.0) H 04/18/20 08:50 Alon Test N/a 04/18/20 08:50 A-a Gradient 15.0 mmHg 04/18/20 08:50 FiO2 21.0 04/18/20 08:50 Blood Gas Comments Pt андрей well elj 04/18/20 08:50 Sodium 139 mmol/L (136-145) 04/20/20 04:15 Corrected Sodium 142 mmol/L (136-145) 04/20/20 04:15 Potassium 4.4 mmol/L (3.5-5.1) 04/20/20 04:15 Chloride 105 mmol/L (98-107) 04/20/20 04:15 Carbon Dioxide 25.7 mmol/L (21-32) 04/20/20 04:15 BUN 27 mg/dL (7-18) H 04/20/20 04:15 Creatinine 1.04 mg/dL (0.70-1.30) 04/20/20 04:15 Est GFR (MDRD) Af Amer > 60 (>60) 04/20/20 04:15 Est GFR (MDRD) Non-Af > 60 (>60) 04/20/20 04:15 Glucose 234 mg/dL (65-99) H 04/20/20 04:15 POC Glucose (mg/dL) 283 mg/dL (65-99) H 04/19/20 19:08 Calcium 8.5 mg/dL (8.5-10.1) 04/20/20 04:15 Corrected Calcium 9.1 mg/dL (8.5-10.1) 04/20/20 04:15 Magnesium 1.8 mg/dL (1.7-2.9) 04/18/20 04:30 Ferritin 349 ng/mL (26-388) 04/18/20 04:30 Total Bilirubin 0.60 mg/dL (0.2-1.0) 04/20/20 04:15 AST 18 Units/L (15-37) 04/20/20 04:15 ALT 24 Units/L (12-78) 04/20/20 04:15 Alkaline Phosphatase 49 Units/L (46-116) 04/20/20 04:15 Creatine Kinase 85 Units/L (39-308) 04/18/20 04:30 CK-MB (CK-2) 1.9 ng/mL (0-4.0) 04/18/20 04:30 CK/CKMB % Calc 2.2 % (<4) 04/18/20 04:30 Troponin I < 0.02 ng/mL (0-1.5) 04/18/20 04:30 C-Reactive Protein 2.40 mg/L (0-3.0) 04/20/20 04:15 B-Natriuretic Peptide 249 pg/mL (0-79) H 04/18/20 04:30 Total Protein 6.1 g/dL (6.4-8.2) L 04/20/20 04:15 Albumin 3.3 g/dL (3.4-5.0) L 04/20/20 04:15 Globulin 2.8 g/dL (2.5-4.5) 04/20/20 04:15 Albumin/Globulin Ratio 1.2 Ratio (1.1-2.1) 04/20/20 04:15 Specimen Type Clean catch urine 04/17/20 15:37 Urine Color Dark yellow (YELLOW) 04/17/20 15:37 Urine Appearance Hazy (CLEAR) 04/17/20 15:37 Urine pH 5.0 (5.0 - 8.0) 04/17/20 15:37 Ur Specific [place] 1.025 (1.000-1.030) 04/17/20 15:37 Urine Protein 3+ (NEGATIVE) 04/17/20 15:37 Urine Glucose (UA) Negative (NEGATIVE) 04/17/20 15:37 Urine Ketones 1+ (NEGATIVE) 04/17/20 15:37 Urine Occult Blood Negative (NEGATIVE) 04/17/20 15:37 Urine Nitrite Negative (NEGATIVE) 04/17/20 15:37 Urine Bilirubin Negative (NEGATIVE) 04/17/20 15:37 Urine Urobilinogen 2+ (NORMAL) 04/17/20 15:37 Ur Leukocyte Esterase 1+ (NEGATIVE) 04/17/20 15:37 Urine RBC 0-2 /HPF (0-3) 04/17/20 15:37 Urine WBC 5-10 /HPF (0-5) A 04/17/20 15:37 Ur Squamous Epith Cells Moderate /HPF (NEGATIVE) 04/17/20 15:37 Calcium Oxalate Crystal Moderate /HPF (NEGATIVE) 04/17/20 15:37 Amorphous Sediment 2+ /HPF (NEGATIVE) 04/17/20 15:37 Urine Bacteria Negative /HPF (NEGATIVE) 04/17/20 15:37 Urine Mucus Moderate /HPF (NEGATIVE) 04/17/20 15:37 Ur Culture Indicated? No/not indicated 04/17/20 15:37 Salicylates < 2.8 mg/dL (2.8-20) L 04/17/20 15:05 Urine Opiates Screen Positive (NEG=<300) 04/17/20 15:37 Urine Methadone Screen Negative (NEG=<300) 04/17/20 15:37 Acetaminophen 0.0 ug/mL (10-30) L 04/17/20 15:05 Ur Barbiturates Screen Negative (NEG=<200) 04/17/20 15:37 Ur Phencyclidine Scrn Negative (NEG=<25) 04/17/20 15:37 Ur Amphetamines Screen Negative (NEG=<1000) 04/17/20 15:37 U Benzodiazepines Scrn Positive (NEG=<200) 04/17/20 15:37 Urine Cocaine Screen Negative (NEG=<300) 04/17/20 15:37 U Marijuana (THC) Screen Negative (NEG=<50) 04/17/20 15:37 Ethyl Alcohol mg/dL < 3 mg/dL (0-19.9) 04/17/20 15:05 SARS CoV-2 RNA Rapid MALIKA Positive (NEGATIVE) A 04/17/20 17:18 Plan (1) COVID-19: Status: Acute Plan: ADMIT, SUPPLEMENTAL OXYGEN, NORMAL SALINE AT 50 ML/HR, REMDESIVIR 100MG IV DAILY, INVANZ 1G IV DAILY, IVERMECTIN 21MG PO Q72H, LOVENOX, RESUME HOME MEDS (2) New onset atrial fibrillation: Status: Acute Plan: 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
[2020-04-20] MEDS: NORCO 10/325 TAB PO PRN (14:54)
[2020-04-20] MEDS: ATIVAN INJ 2 MG VIAL IVP PRN ×2 (14:55→23:24)
[2020-04-20] MEDS ORDERED: GEODON INJ IM ONE ×2 (15:54→15:55)
[2020-04-20] MEDS: ZOCOR TAB 20 MG PO SCH (22:00)
[2020-04-20] MEDS: ASPIRIN EC 81 MG PO SCH (22:00)
[2020-04-20] MEDS: SEROquel TAB 25 mg PO SCH (22:00)
[2020-04-20] MEDS: FLOMAX PO SCH (22:00)
[2020-04-20] MEDS: TOPROL XL PO SCH (22:00)
[2020-04-20] MEDS: VALIUM PO SCH (22:00)
[2020-04-20] MEDS: AVODART PO SCH (22:00)
[2020-04-20] MEDS: SNACK - Diabetic Appropriate PO SCH (22:37)
[2020-04-21 05:33] LABS: BASOPHILS % (AUTO) 0.2 % (0.2-1.0); HEMATOCRIT 39.4 % (42.0-54.0); HEMOGLOBIN 13.4 g/dL (13.5-18.0); LYMPHOCYTES # (AUTO) 0.8 X10^3/uL (1.3-2.9); LYMPHOCYTES % (AUTO) 10.3 % (21.0-51.0); MEAN CORPUSCULAR HEMOGLOBIN 34.2 pg (27.0-34.0); MEAN CORPUSCULAR VOLUME 100.6 fL (80.0-100.0); MEAN PLATELET VOLUME 9.1 fL (7.4-11.0); MONOCYTES # (AUTO) 0.2 x10^3/uL (0.3-0.8); MONOCYTES % (AUTO) 2.9 % (0.0-13.0); NEUTROPHILS % (AUTO) 86.6 % (42.0-75.0); PLATELET COUNT 90 X10^3/uL (150.0-450.0); RED BLOOD COUNT 3.92 X10^6/uL (4.7-6.0); RED CELL DISTRIBUTION WIDTH 13.5 % (11.6-16.5); WHITE BLOOD COUNT 8.1 X10^3/uL (3.6-10.0)
[2020-04-21 05:41] LABS: ALANINE AMINOTRANSFERASE 28 Units/L (12-78); ALBUMIN 3.5 g/dL (3.4-5.0); ALKALINE PHOSPHATASE 41 Units/L (46-116); ASPARTATE AMINO TRANSFERASE 21 Units/L (15-37); BLOOD UREA NITROGEN 29 mg/dL (7-18); CALCIUM 8.4 mg/dL (8.5-10.1); CARBON DIOXIDE 26.4 mmol/L (21-32); CHLORIDE 105 mmol/L (98-107); COR NA(FOR HYPERGLY) 141 mmol/L (136-145); SODIUM 138 mmol/L (136-145); TOTAL PROTEIN 6.1 g/dL (6.4-8.2); eGFR NON BLACK RACES > 60 (>60)
[2020-04-21] MEDS: NS 1000 ML 1,000 ML IV SCH ×2 (05:45→17:50)
[2020-04-21] MEDS: SOLU-Medrol 40 MG VIAL IVP SCH ×3 (06:13→21:35)
[2020-04-21] MEDS: HumuLIN R SUBCUT PRN ×3 (06:14→21:31)
[2020-04-21] MEDS: MICRO K EXTEN CAP 10 MEQ PO SCH (09:00)
[2020-04-21] MEDS: ZESTORETIC 10/ 12.5MG PO SCH (09:00)
[2020-04-21] MEDS: AMARYL TAB 4 MG PO SCH (09:00)
[2020-04-21] MEDS: TAB-A-VITE PO SCH (09:00)
[2020-04-21] MEDS: OSCAL+D or CALTRATE+D PO SCH (09:00)
[2020-04-21] MEDS: INVANZ INJ 1 GM VIAL 1 GM in NS 100 ML IV + SPIKE MINIBAG* 100 ML IV SCH (09:00)
[2020-04-21] MEDS: ZYLOPRIM PO SCH (09:00)
[2020-04-21] MEDS: REMDESIVIR 100 MG in NS 250 ML IV 250 ML IV SCH (09:12)
[2020-04-21] MEDS: DUONEB 0.5 MG/3 MG (3 mL) NEB SCH ×4 (09:26→21:28)
--- NOTE | 2020-04-21 09:56 | RAD ---
HISTORYShortness of breathSTUDYChest AP [id number]/2021FINDINGSThe heart is enlarged. . No congestive heart failure is noted. No acute alveolar infiltrates or pleural effusions are identified. Bony thorax is unremarkable.IMPRESSIONNo change cardiomegaly without congestive heart failureLungs clearElectronically signed by: ANNA SOTO (Apr 21, 2020 09:54:33)
[2020-04-21] MEDS: IVERMECTIN PO SCH (10:22)
--- NOTE | 2020-04-21 10:24 | PCM.PROG ---
Progress Note - Progress Note for Day of Date of Exam: 04/18/20 - Subjective Subjective: IS BEING TREATED FOR PNEUMONIA DUE TO COVID-19, NEW ONSET A-FIB, A URINARY TRACT INFECTION, AND ALTERED MENTAL STATUS. HIS PMH INCLUDES HYPERTENSION, DIABETES MELLITIS II, BPH, LUMBAR SPONDYLOSIS. HE INITIALL TESTED POSITIVE FOR COVID-19 ON 03/19/2020. HE CONTINUES WITH DISORIENTATION. STAFF REPORTS THAT HE HAS ALSO HAD HALLUCINATIONS THROUGHOUT THE NIGHT, BUT HAS NOT BEEN COMBATIVE. ON EXAMINATION, HEART IS REGULAR IN RATE AND RHYTHM. BILATERAL LUNGS ARE NOTED WITH DIMINISHED LUNG SOUNDS THROUGHOUT. ABDOMEN IS ROUND, SOFT, AND NON-TENDER WITH NORMAL BOWEL SOUNDS NOTED IN ALL QUADRANTS. HIS VITALS THIS MORNING ARE: 98.1-90-28-96%-156/85. LABS WERE OBTAINED. ABNORMAL LAB VALUES INCLUDE THE FOLLOWING: RBC 3.97, HGB 13.4, HCT 39.7, PLT COUNT 80, BUN 19, GLUCOSE 137, ALK PHOS 45, CRP 11.30, BNP 249. A CHEST CTA WAS OBTAINED AND REVEALED: Negative for pulmonary embolism. Mild ground-glass opacity and consolidation left lower lobe may represent early changes of COVID 19. Chronic appearing interstitial subpleural opacities bilaterally. Cardiomegaly with severe coronary artery calcifications. A BRAIN CT WAS OBTAINED AND REVEALED: Prominent diffuse volume loss in the brain could be from dementia. There are mild chronic small vessel ischemic changes suspected without evidence of acute intracranial abnormality. Moderate chronic sinusitis changes are seen. HE IS CURRENTLY RECEIVING NORMAL SALINE AT 50 ML/HR, REMDESIVIR 100MG IV DAILY, INVANZ 1G IV DAILY, IVERMECTIN 21MG PO Q72H, AND LOVENOX. HIS HOME MEDICATIONS OF ALLOPURINOL 100MG PO DAILY, ASA 81MG PH HS, VALIUM 10MG PO HS, AVODART 0.5MG PO HS, AMARYL 4MG PO DAILY, NORCO 1 TAB PO Q6H PRN, ZESTORETIC 1 TAB PO DAILY, TOPROL XL 50MG PO HS, MULTI VITAMIN DAILY, NITROSTAT 0.4MG SL Q5M PRN, MICRO K 10MEQ PO DAILY, ZOCOR 20MG PO HS, AND FLOMAX 0.4MG PO HS WERE RESUMED. WE WILL CONTINUE WITH CURRENT PLAN OF CARE TODAY. OTHERWISE, WE PLAN TO FOLLOW UP WITH AM LABS AND CONTINUE TO MONITOR. TIME SPENT ON CLINICAL ASSESSMENT, REVIEWING LABS AND IMAGING, DECISION MAKING, AND DOCUMENTATION GREATER THAN 75 MINUTES. - Past Medical Family Social History Past Med/Fam/Surg Hx: No changes since H&P Allergies: Allergies No Known Drug Allergies Allergy (Verified 04/17/20 14:52) - Review of Systems ROS: No change since H&P - Vital Signs and I&O's Vital Signs: Temperature 98.2 F Pulse Rate [Left Radial] 96 Pulse Rate 101 Respiratory Rate 25 Blood Pressure [Left Arm] 154/85 Blood Pressure 148/83 O2 Sat by Pulse Oximetry 98 Intake and Output: Intake & Output 04/18/20 04/19/20 04/20/20 04/21/20 11:59 11:59 11:59 11:59 Intake Total 360 / 360 1596 / 1596 1599 / 1599 400 / 400 Output Total 400 / 400 500 / 500 325 / 325 50 / 50 Balance -40 / -40 1096 / 1096 1274 / 1274 350 / 350 - Physical Exam Oriented: Not Oriented Eyes: Normal Ear: Normal Nose: Normal Throat: Normal Respiratory: Normal Cardiovascular: Normal : Normal Auscultation: Bowel Sounds: Normal Palpation: Normal Tenderness: Normal Skin: Normal Musculoskeletal: Normal Psychiatric: Other (DISORIENTATION) Mood Description: Calm Affect: Normal Speech Pattern: Clear, Appropriate, Inappropriate - Laboratory and Diagnostics Result Diagrams: 04/21/20 04:45 04/21/20 04:45 Labs: Laboratory WBC 8.1 X10^3/uL (3.6-10.0) 04/21/20 04:45 RBC 3.92 X10^6/uL (4.7-6.0) L 04/21/20 04:45 Hgb 13.4 g/dL (13.5-18.0) L 04/21/20 04:45 Hct 39.4 % (42.0-54.0) L 04/21/20 04:45 MCV 100.6 fL (80.0-100.0) H 04/21/20 04:45 MCH 34.2 pg (27.0-34.0) H 04/21/20 04:45 MCHC 34.0 g/dL (33.0-35.0) 04/21/20 04:45 RDW 13.5 % (11.6-16.5) 04/21/20 04:45 Plt Count 90 X10^3/uL (150.0-450.0) L 04/21/20 04:45 MPV 9.1 fL (7.4-11.0) 04/21/20 04:45 Neut % (Auto) 86.6 % (42.0-75.0) H 04/21/20 04:45 Lymph % (Auto) 10.3 % (21.0-51.0) L 04/21/20 04:45 [place] % (Auto) 2.9 % (0.0-13.0) 04/21/20 04:45 Eos % (Auto) 0.0 % (0.9-2.9) L 04/21/20 04:45 Baso % (Auto) 0.2 % (0.2-1.0) 04/21/20 04:45 Neut # (Auto) 7.0 x10^3/uL (2.2-4.8) H 04/21/20 04:45 Lymph # (Auto) 0.8 X10^3/uL (1.3-2.9) L 04/21/20 04:45 [place] # (Auto) 0.2 x10^3/uL (0.3-0.8) L 04/21/20 04:45 Eos # (Auto) 0.0 x10^3/uL (0.0-0.2) 04/21/20 04:45 Baso # (Auto) 0.0 X10^3/uL (0.0-0.1) 04/21/20 04:45 Absolute Nucleated RBC 0.0 /100WBC 04/21/20 04:45 PT 14.4 SECONDS (11.8-14.3) 04/18/20 04:30 INR Target Range - 04/18/20 04:30 INR 1.16 (0.8-1.3) 04/18/20 04:30 APTT 29.2 SECONDS (22.9-36.5) 04/18/20 04:30 PTT Comment - 04/18/20 04:30 D-Dimer 0.44 ug/ml (0.0-0.57) 04/18/20 04:30 Sample Site [facility] 04/18/20 08:50 ABG pH 7.430 (7.35-7.45) 04/18/20 08:50 ABG pCO2 41.0 mmHg (35.0-45.0) 04/18/20 08:50 ABG pO2 83.0 mmHg (80.0-100.0) 04/18/20 08:50 ABG HCO3 27.2 mmol/L (22-26) H 04/18/20 08:50 ABG O2 Saturation 96.0 % (90-100) 04/18/20 08:50 ABG Base Excess 2.6 mmol/L (-2.0-2.0) H 04/18/20 08:50 Alon Test N/a 04/18/20 08:50 A-a Gradient 15.0 mmHg 04/18/20 08:50 FiO2 21.0 04/18/20 08:50 Blood Gas Comments Pt андрей well elj 04/18/20 08:50 Sodium 138 mmol/L (136-145) 04/21/20 04:45 Corrected Sodium 141 mmol/L (136-145) 04/21/20 04:45 Potassium 4.5 mmol/L (3.5-5.1) 04/21/20 04:45 Chloride 105 mmol/L (98-107) 04/21/20 04:45 Carbon Dioxide 26.4 mmol/L (21-32) 04/21/20 04:45 BUN 29 mg/dL (7-18) H 04/21/20 04:45 Creatinine 1.00 mg/dL (0.70-1.30) 04/21/20 04:45 Est GFR (MDRD) Af Amer > 60 (>60) 04/21/20 04:45 Est GFR (MDRD) Non-Af > 60 (>60) 04/21/20 04:45 Glucose 233 mg/dL (65-99) H 04/21/20 04:45 POC Glucose (mg/dL) 160 mg/dL (65-99) H 04/20/20 22:17 Calcium 8.4 mg/dL (8.5-10.1) L 04/21/20 04:45 Corrected Calcium TNP 04/21/20 04:45 Magnesium 1.8 mg/dL (1.7-2.9) 04/18/20 04:30 Ferritin 349 ng/mL (26-388) 04/18/20 04:30 Total Bilirubin 0.60 mg/dL (0.2-1.0) 04/21/20 04:45 AST 21 Units/L (15-37) 04/21/20 04:45 ALT 28 Units/L (12-78) 04/21/20 04:45 Alkaline Phosphatase 41 Units/L (46-116) L 04/21/20 04:45 Creatine Kinase 85 Units/L (39-308) 04/18/20 04:30 CK-MB (CK-2) 1.9 ng/mL (0-4.0) 04/18/20 04:30 CK/CKMB % Calc 2.2 % (<4) 04/18/20 04:30 Troponin I < 0.02 ng/mL (0-1.5) 04/18/20 04:30 C-Reactive Protein 0.90 mg/L (0-3.0) 04/21/20 04:45 B-Natriuretic Peptide 249 pg/mL (0-79) H 04/18/20 04:30 Total Protein 6.1 g/dL (6.4-8.2) L 04/21/20 04:45 Albumin 3.5 g/dL (3.4-5.0) 04/21/20 04:45 Globulin 2.6 g/dL (2.5-4.5) 04/21/20 04:45 Albumin/Globulin Ratio 1.3 Ratio (1.1-2.1) 04/21/20 04:45 Specimen Type Clean catch urine 04/17/20 15:37 Urine Color Dark yellow (YELLOW) 04/17/20 15:37 Urine Appearance Hazy (CLEAR) 04/17/20 15:37 Urine pH 5.0 (5.0 - 8.0) 04/17/20 15:37 Ur Specific [place] 1.025 (1.000-1.030) 04/17/20 15:37 Urine Protein 3+ (NEGATIVE) 04/17/20 15:37 Urine Glucose (UA) Negative (NEGATIVE) 04/17/20 15:37 Urine Ketones 1+ (NEGATIVE) 04/17/20 15:37 Urine Occult Blood Negative (NEGATIVE) 04/17/20 15:37 Urine Nitrite Negative (NEGATIVE) 04/17/20 15:37 Urine Bilirubin Negative (NEGATIVE) 04/17/20 15:37 Urine Urobilinogen 2+ (NORMAL) 04/17/20 15:37 Ur Leukocyte Esterase 1+ (NEGATIVE) 04/17/20 15:37 Urine RBC 0-2 /HPF (0-3) 04/17/20 15:37 Urine WBC 5-10 /HPF (0-5) A 04/17/20 15:37 Ur Squamous Epith Cells Moderate /HPF (NEGATIVE) 04/17/20 15:37 Calcium Oxalate Crystal Moderate /HPF (NEGATIVE) 04/17/20 15:37 Amorphous Sediment 2+ /HPF (NEGATIVE) 04/17/20 15:37 Urine Bacteria Negative /HPF (NEGATIVE) 04/17/20 15:37 Urine Mucus Moderate /HPF (NEGATIVE) 04/17/20 15:37 Ur Culture Indicated? No/not indicated 04/17/20 15:37 Salicylates < 2.8 mg/dL (2.8-20) L 04/17/20 15:05 Urine Opiates Screen Positive (NEG=<300) 04/17/20 15:37 Urine Methadone Screen Negative (NEG=<300) 04/17/20 15:37 Acetaminophen 0.0 ug/mL (10-30) L 04/17/20 15:05 Ur Barbiturates Screen Negative (NEG=<200) 04/17/20 15:37 Ur Phencyclidine Scrn Negative (NEG=<25) 04/17/20 15:37 Ur Amphetamines Screen Negative (NEG=<1000) 04/17/20 15:37 U Benzodiazepines Scrn Positive (NEG=<200) 04/17/20 15:37 Urine Cocaine Screen Negative (NEG=<300) 04/17/20 15:37 U Marijuana (THC) Screen Negative (NEG=<50) 04/17/20 15:37 Ethyl Alcohol mg/dL < 3 mg/dL (0-19.9) 04/17/20 15:05 SARS CoV-2 RNA Rapid MALIKA Positive (NEGATIVE) A 04/17/20 17:18 - Plan (1) COVID-19 Status: Acute Plan: SUPPLEMENTAL OXYGEN, NORMAL SALINE AT 50 ML/HR, REMDESIVIR 100MG IV DAILY, INVANZ 1G IV DAILY, IVERMECTIN 21MG PO Q72H, LOVENOX, RESUME HOME MEDS (2) New onset atrial fibrillation Status: Acute 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
--- NOTE | 2020-04-21 10:29 | PCM.PROG ---
Progress Note - Progress Note for Day of Date of Exam: 04/21/20 - Subjective Subjective: IS BEING TREATED FOR PNEUMONIA DUE TO COVID-19, NEW ONSET A-FIB, A URINARY TRACT INFECTION, AND ALTERED MENTAL STATUS. HIS PMH INCLUDES HYPERTENSION, DIABETES MELLITIS II, BPH, LUMBAR SPONDYLOSIS. HE INITIALL TESTED POSITIVE FOR COVID-19 ON 03/19/2020. HE CONTINUES WITH DISORIENTATION AND HALLUCINATIONS. HE CONTINUES WITH AGITATION AT TIMES. ON EXAMINATION, HEART IS REGULAR IN RATE AND RHYTHM. BILATERAL LUNGS ARE NOTED WITH DIMINISHED LUNG SOUNDS THROUGHOUT. ABDOMEN IS ROUND, SOFT, AND NON-TENDER WITH NORMAL BOWEL SOUNDS NOTED IN ALL QUADRANTS. HIS VITALS THIS MORNING ARE: 98.2 -95-23-95%-133/73. LABS WERE OBTAINED. ABNORMAL LAB VALUES INCLUDE THE FOLLOWING: RBC 3.92, HGB 13.4, HCT 39.4, PLT COUNT 90, BUN 29, GLUCOSE 233, CALCIUM 8.4, ALK PHOS 41, TOTAL PROTEIN 6.1. A CHEST XRAY WAS OBTAINED AND REVEALED: No change cardiomegaly without congestive heart failure. Lungs clear. HE IS CURRENTLY RECEIVING NORMAL SALINE AT 50 ML/HR, REMDESIVIR 100MG IV DAILY, INVANZ 1G IV DAILY, IVERMECTIN 21MG PO Q72H, HUMULIN R SLIDING SCALE, AND LOVENOX. HIS HOME MEDICATIONS OF ALLOPURINOL 100MG PO DAILY, ASA 81MG PH HS, VALIUM 10MG PO HS, AVODART 0.5MG PO HS, AMARYL 4MG PO DAILY, NORCO 1 TAB PO Q6H PRN, ZESTORETIC 1 TAB PO DAILY, TOPROL XL 50MG PO HS, MULTI VITAMIN DAILY, NITROSTAT 0.4MG SL Q5M PRN, MICRO K 10MEQ PO DAILY, ZOCOR 20MG PO HS, AND FLOMAX 0.4MG PO HS WERE RESUMED. WE WILL CONTINUE WITH CURRENT PLAN OF CARE TODAY. WE WILL CONSULT WITH [facility] FOR PLACEMENT. OTHERWISE, WE PLAN TO FOLLOW UP WITH LABS AND CONTINUE TO MONITOR. TIME SPENT ON CLINICAL ASSESSMENT, REVIEWING LABS AND IMAGING, DECISION MAKING, AND DOCUMENTATION GREATER THAN 75 MINUTES. - Past Medical Family Social History Past Med/Fam/Surg Hx: No changes since H&P Allergies: Allergies No Known Drug Allergies Allergy (Verified 04/17/20 14:52) - Review of Systems ROS: No change since H&P - Vital Signs and I&O's Vital Signs: Temperature 98.2 F Pulse Rate [Left Radial] 96 Pulse Rate 101 Respiratory Rate 25 Blood Pressure [Left Arm] 154/85 Blood Pressure 148/83 O2 Sat by Pulse Oximetry 98 Intake and Output: Intake & Output 04/18/20 04/19/20 04/20/20 04/21/20 11:59 11:59 11:59 11:59 Intake Total 360 / 360 1596 / 1596 1599 / 1599 400 / 400 Output Total 400 / 400 500 / 500 325 / 325 50 / 50 Balance -40 / -40 1096 / 1096 1274 / 1274 350 / 350 - Physical Exam Oriented: Not Oriented Eyes: Normal Ear: Normal Nose: Normal Throat: Normal Respiratory: Normal Cardiovascular: Normal : Normal Auscultation: Bowel Sounds: Normal Tenderness: Normal Skin: Normal Musculoskeletal: Normal Psychiatric: Other (DISORIENTATION) Mood Description: Calm Affect: Normal Speech Pattern: Clear, Appropriate, Inappropriate - Laboratory and Diagnostics Result Diagrams: 04/21/20 04:45 04/21/20 04:45 Labs: Laboratory WBC 8.1 X10^3/uL (3.6-10.0) 04/21/20 04:45 RBC 3.92 X10^6/uL (4.7-6.0) L 04/21/20 04:45 Hgb 13.4 g/dL (13.5-18.0) L 04/21/20 04:45 Hct 39.4 % (42.0-54.0) L 04/21/20 04:45 MCV 100.6 fL (80.0-100.0) H 04/21/20 04:45 MCH 34.2 pg (27.0-34.0) H 04/21/20 04:45 MCHC 34.0 g/dL (33.0-35.0) 04/21/20 04:45 RDW 13.5 % (11.6-16.5) 04/21/20 04:45 Plt Count 90 X10^3/uL (150.0-450.0) L 04/21/20 04:45 MPV 9.1 fL (7.4-11.0) 04/21/20 04:45 Neut % (Auto) 86.6 % (42.0-75.0) H 04/21/20 04:45 Lymph % (Auto) 10.3 % (21.0-51.0) L 04/21/20 04:45 [place] % (Auto) 2.9 % (0.0-13.0) 04/21/20 04:45 Eos % (Auto) 0.0 % (0.9-2.9) L 04/21/20 04:45 Baso % (Auto) 0.2 % (0.2-1.0) 04/21/20 04:45 Neut # (Auto) 7.0 x10^3/uL (2.2-4.8) H 04/21/20 04:45 Lymph # (Auto) 0.8 X10^3/uL (1.3-2.9) L 04/21/20 04:45 [place] # (Auto) 0.2 x10^3/uL (0.3-0.8) L 04/21/20 04:45 Eos # (Auto) 0.0 x10^3/uL (0.0-0.2) 04/21/20 04:45 Baso # (Auto) 0.0 X10^3/uL (0.0-0.1) 04/21/20 04:45 Absolute Nucleated RBC 0.0 /100WBC 04/21/20 04:45 PT 14.4 SECONDS (11.8-14.3) 04/18/20 04:30 INR Target Range - 04/18/20 04:30 INR 1.16 (0.8-1.3) 04/18/20 04:30 APTT 29.2 SECONDS (22.9-36.5) 04/18/20 04:30 PTT Comment - 04/18/20 04:30 D-Dimer 0.44 ug/ml (0.0-0.57) 04/18/20 04:30 Sample Site [facility] 04/18/20 08:50 ABG pH 7.430 (7.35-7.45) 04/18/20 08:50 ABG pCO2 41.0 mmHg (35.0-45.0) 04/18/20 08:50 ABG pO2 83.0 mmHg (80.0-100.0) 04/18/20 08:50 ABG HCO3 27.2 mmol/L (22-26) H 04/18/20 08:50 ABG O2 Saturation 96.0 % (90-100) 04/18/20 08:50 ABG Base Excess 2.6 mmol/L (-2.0-2.0) H 04/18/20 08:50 Alon Test N/a 04/18/20 08:50 A-a Gradient 15.0 mmHg 04/18/20 08:50 FiO2 21.0 04/18/20 08:50 Blood Gas Comments Pt анрдей well elj 04/18/20 08:50 Sodium 138 mmol/L (136-145) 04/21/20 04:45 Corrected Sodium 141 mmol/L (136-145) 04/21/20 04:45 Potassium 4.5 mmol/L (3.5-5.1) 04/21/20 04:45 Chloride 105 mmol/L (98-107) 04/21/20 04:45 Carbon Dioxide 26.4 mmol/L (21-32) 04/21/20 04:45 BUN 29 mg/dL (7-18) H 04/21/20 04:45 Creatinine 1.00 mg/dL (0.70-1.30) 04/21/20 04:45 Est GFR (MDRD) Af Amer > 60 (>60) 04/21/20 04:45 Est GFR (MDRD) Non-Af > 60 (>60) 04/21/20 04:45 Glucose 233 mg/dL (65-99) H 04/21/20 04:45 POC Glucose (mg/dL) 160 mg/dL (65-99) H 04/20/20 22:17 Calcium 8.4 mg/dL (8.5-10.1) L 04/21/20 04:45 Corrected Calcium TNP 04/21/20 04:45 Magnesium 1.8 mg/dL (1.7-2.9) 04/18/20 04:30 Ferritin 349 ng/mL (26-388) 04/18/20 04:30 Total Bilirubin 0.60 mg/dL (0.2-1.0) 04/21/20 04:45 AST 21 Units/L (15-37) 04/21/20 04:45 ALT 28 Units/L (12-78) 04/21/20 04:45 Alkaline Phosphatase 41 Units/L (46-116) L 04/21/20 04:45 Creatine Kinase 85 Units/L (39-308) 04/18/20 04:30 CK-MB (CK-2) 1.9 ng/mL (0-4.0) 04/18/20 04:30 CK/CKMB % Calc 2.2 % (<4) 04/18/20 04:30 Troponin I < 0.02 ng/mL (0-1.5) 04/18/20 04:30 C-Reactive Protein 0.90 mg/L (0-3.0) 04/21/20 04:45 B-Natriuretic Peptide 249 pg/mL (0-79) H 04/18/20 04:30 Total Protein 6.1 g/dL (6.4-8.2) L 04/21/20 04:45 Albumin 3.5 g/dL (3.4-5.0) 04/21/20 04:45 Globulin 2.6 g/dL (2.5-4.5) 04/21/20 04:45 Albumin/Globulin Ratio 1.3 Ratio (1.1-2.1) 04/21/20 04:45 Specimen Type Clean catch urine 04/17/20 15:37 Urine Color Dark yellow (YELLOW) 04/17/20 15:37 Urine Appearance Hazy (CLEAR) 04/17/20 15:37 Urine pH 5.0 (5.0 - 8.0) 04/17/20 15:37 Ur Specific [place] 1.025 (1.000-1.030) 04/17/20 15:37 Urine Protein 3+ (NEGATIVE) 04/17/20 15:37 Urine Glucose (UA) Negative (NEGATIVE) 04/17/20 15:37 Urine Ketones 1+ (NEGATIVE) 04/17/20 15:37 Urine Occult Blood Negative (NEGATIVE) 04/17/20 15:37 Urine Nitrite Negative (NEGATIVE) 04/17/20 15:37 Urine Bilirubin Negative (NEGATIVE) 04/17/20 15:37 Urine Urobilinogen 2+ (NORMAL) 04/17/20 15:37 Ur Leukocyte Esterase 1+ (NEGATIVE) 04/17/20 15:37 Urine RBC 0-2 /HPF (0-3) 04/17/20 15:37 Urine WBC 5-10 /HPF (0-5) A 04/17/20 15:37 Ur Squamous Epith Cells Moderate /HPF (NEGATIVE) 04/17/20 15:37 Calcium Oxalate Crystal Moderate /HPF (NEGATIVE) 04/17/20 15:37 Amorphous Sediment 2+ /HPF (NEGATIVE) 04/17/20 15:37 Urine Bacteria Negative /HPF (NEGATIVE) 04/17/20 15:37 Urine Mucus Moderate /HPF (NEGATIVE) 04/17/20 15:37 Ur Culture Indicated? No/not indicated 04/17/20 15:37 Salicylates < 2.8 mg/dL (2.8-20) L 04/17/20 15:05 Urine Opiates Screen Positive (NEG=<300) 04/17/20 15:37 Urine Methadone Screen Negative (NEG=<300) 04/17/20 15:37 Acetaminophen 0.0 ug/mL (10-30) L 04/17/20 15:05 Ur Barbiturates Screen Negative (NEG=<200) 04/17/20 15:37 Ur Phencyclidine Scrn Negative (NEG=<25) 04/17/20 15:37 Ur Amphetamines Screen Negative (NEG=<1000) 04/17/20 15:37 U Benzodiazepines Scrn Positive (NEG=<200) 04/17/20 15:37 Urine Cocaine Screen Negative (NEG=<300) 04/17/20 15:37 U Marijuana (THC) Screen Negative (NEG=<50) 04/17/20 15:37 Ethyl Alcohol mg/dL < 3 mg/dL (0-19.9) 04/17/20 15:05 SARS CoV-2 RNA Rapid MALIKA Positive (NEGATIVE) A 04/17/20 17:18 - Plan (1) COVID-19 Status: Acute Plan: SUPPLEMENTAL OXYGEN, NORMAL SALINE AT 50 ML/HR, REMDESIVIR 100MG IV DAILY, INVANZ 1G IV DAILY, IVERMECTIN 21MG PO Q72H, LOVENOX, RESUME HOME MEDS (2) New onset atrial fibrillation Status: Acute 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
[2020-04-21] MEDS: LOVENOX INJ 40 MG SYR SC SCH ×2 (11:31→21:33)
[2020-04-21] MEDS: TOPROL XL PO SCH (21:35)
[2020-04-21] MEDS: ASPIRIN EC 81 MG PO SCH (21:35)
[2020-04-21] MEDS: FLOMAX PO SCH (21:35)
[2020-04-21] MEDS: SEROquel TAB 25 mg PO SCH (21:35)
[2020-04-21] MEDS: ZOCOR TAB 20 MG PO SCH (21:35)
[2020-04-21] MEDS: VALIUM PO SCH (21:35)
[2020-04-21] MEDS: SNACK - Diabetic Appropriate PO SCH (21:36)
[2020-04-21] MEDS: AVODART PO SCH (23:11)
[2020-04-22] MEDS ORDERED: HYDROGEN PEROXIDE 3% ONE ×2 (03:50)
[2020-04-22 05:03] LABS: BASOPHILS % (AUTO) 0.1 % (0.2-1.0); HEMATOCRIT 41.8 % (42.0-54.0); LYMPHOCYTES # (AUTO) 0.8 X10^3/uL (1.3-2.9); LYMPHOCYTES % (AUTO) 8.6 % (21.0-51.0); MEAN CORPUSCULAR HEMOGLOBIN 33.7 pg (27.0-34.0); MEAN CORPUSCULAR HGB CONC 33.5 g/dL (33.0-35.0); MEAN CORPUSCULAR VOLUME 100.5 fL (80.0-100.0); MEAN PLATELET VOLUME 8.8 fL (7.4-11.0); MONOCYTES # (AUTO) 0.5 x10^3/uL (0.3-0.8); MONOCYTES % (AUTO) 5.1 % (0.0-13.0); NEUTROPHILS # (AUTO) 7.7 x10^3/uL (2.2-4.8); NEUTROPHILS % (AUTO) 86.2 % (42.0-75.0); PLATELET COUNT 110 X10^3/uL (150.0-450.0); RED BLOOD COUNT 4.16 X10^6/uL (4.7-6.0); RED CELL DISTRIBUTION WIDTH 13.3 % (11.6-16.5); WHITE BLOOD COUNT 8.9 X10^3/uL (3.6-10.0)
[2020-04-22 05:17] LABS: ALANINE AMINOTRANSFERASE 36 Units/L (12-78); ALBUMIN 3.5 g/dL (3.4-5.0); ALKALINE PHOSPHATASE 40 Units/L (46-116); ASPARTATE AMINO TRANSFERASE 25 Units/L (15-37); BLOOD UREA NITROGEN 33 mg/dL (7-18); CALCIUM 8.6 mg/dL (8.5-10.1); CARBON DIOXIDE 25.5 mmol/L (21-32); CHLORIDE 104 mmol/L (98-107); COR NA(FOR HYPERGLY) 141 mmol/L (136-145); CREATININE 1.16 mg/dL (0.70-1.30); SODIUM 139 mmol/L (136-145); TOTAL PROTEIN 6.2 g/dL (6.4-8.2); eGFR NON BLACK RACES > 60 (>60)
[2020-04-22] MEDS: NS 1000 ML 1,000 ML IV SCH (06:43)
[2020-04-22] MEDS: SOLU-Medrol 40 MG VIAL IVP SCH ×3 (06:50→21:36)
[2020-04-22] MEDS: DUONEB 0.5 MG/3 MG (3 mL) NEB SCH ×4 (08:10→20:15)
--- NOTE | 2020-04-22 09:18 | RAD ---
HISTORYSOBSTUDYCHEST x-ray, [facility]COMPARISONReg[facility] 04/21/2020FINDINGSCardiomegaly with enlarged right side of the heart. Possible CHF. No definite pulmonary edema. No pneumothorax, focal infiltrate, or pleural effusion is seen.IMPRESSIONCardiomegaly and possible mild CHF. Findings may have slightly worsened since prior study.Electronically signed by: Barron Llanos (Apr 22, 2020 09:16:58)
[2020-04-22] MEDS: INVANZ INJ 1 GM VIAL 1 GM in NS 100 ML IV + SPIKE MINIBAG* 100 ML IV SCH (09:58)
[2020-04-22] MEDS: REMDESIVIR 100 MG in NS 250 ML IV 250 ML IV SCH (10:46)
[2020-04-22] MEDS: LOVENOX INJ 40 MG SYR SC SCH ×2 (11:24→20:08)
[2020-04-22] MEDS: HumuLIN R SUBCUT PRN ×2 (11:25→20:11)
[2020-04-22] MEDS: AMARYL TAB 4 MG PO SCH (12:00)
[2020-04-22] MEDS: ZESTORETIC 10/ 12.5MG PO SCH (12:00)
[2020-04-22] MEDS: ZYLOPRIM PO SCH (12:00)
[2020-04-22] MEDS: TAB-A-VITE PO SCH (12:00)
[2020-04-22] MEDS: OSCAL+D or CALTRATE+D PO SCH (12:00)
[2020-04-22] MEDS: MICRO K EXTEN CAP 10 MEQ PO SCH (12:00)
--- NOTE | 2020-04-22 13:51 | PCM.PROG ---
Progress Note - Progress Note for Day of Date of Exam: 04/22/20 - Subjective Subjective: IS BEING TREATED FOR PNEUMONIA DUE TO COVID-19, NEW ONSET A-FIB, A URINARY TRACT INFECTION, AND ALTERED MENTAL STATUS. HIS PMH INCLUDES HYPERTENSION, DIABETES MELLITIS II, BPH, LUMBAR SPONDYLOSIS. HE INITIALL TESTED POSITIVE FOR COVID-19 ON 03/19/2020. HE CONTINUES WITH DISORIENTATION AND HALLUCINATIONS, HOWEVER, STAFF REPORTS THAT HE RESTED WELL THROUGHOUT THE NIGHT. ON EXAMINATION, HEART IS REGULAR IN RATE AND RHYTHM. BILATERAL LUNGS ARE NOTED WITH DIMINISHED LUNG SOUNDS THROUGHOUT. ABDOMEN IS ROUND, SOFT, AND NON-TENDER WITH NORMAL BOWEL SOUNDS NOTED IN ALL QUADRANTS. HIS VITALS THIS MORNING ARE: 97.0-100-19-99%-122/79. LABS WERE OBTAINED. ABNORMAL LAB VALUES INCLUDE THE F OLLOWING: RBC 4.16, HCT 41.8, PLT COUNT 110, BUN 33, GLUCOSE 189, ALK PHOS 40, TOTAL PROTEIN 6.2. URINE CULTURES ARE PENDING. A CHEST XRAY WAS OBTAINED AND REVEALED: Cardiomegaly and possible mild CHF. Findings may have slightly worsened since prior study. HE IS CURRENTLY RECEIVING NORMAL SALINE AT 50 ML/HR, REMDESIVIR 100MG IV DAILY, INVANZ 1G IV DAILY, IVERMECTIN 21MG PO Q72H, HUMULIN R SLIDING SCALE, AND LOVENOX. HIS HOME MEDICATIONS OF ALLOPURINOL 100MG PO DAILY, ASA 81MG PH HS, VALIUM 10MG PO HS, AVODART 0.5MG PO HS, AMARYL 4MG PO DAILY, NORCO 1 TAB PO Q6H PRN, ZESTORETIC 1 TAB PO DAILY, TOPROL XL 50MG PO HS, MULTI VITAMIN DAILY, NITROSTAT 0.4MG SL Q5M PRN, MICRO K 10MEQ PO DAILY, ZOCOR 20MG PO HS, AND FLOMAX 0.4MG PO HS WERE RESUMED. WE WILL CONTINUE WITH CURRENT PLAN OF CARE TODAY AND HEPLOCK HIS IV FLUIDS. WE WILL CONSULT WITH [facility] FOR [facility]AC[facility]. OTHERWISE, WE PLAN TO FOLLOW UP WITH LABS AND CONTINUE TO MONITOR. TIME SPENT ON CLINICAL ASSESSMENT, REVIEWING LABS AND IMAGING, DECISION MAKING, AND DOCUMENTATION GREATER THAN 75 MINUTES. - Past Medical Family Social History Past Med/Fam/Surg Hx: No changes since H&P Allergies: Allergies No Known Drug Allergies Allergy (Verified 04/17/20 14:52) - Review of Systems ROS: No change since H&P - Vital Signs and I&O's Vital Signs: Temperature 97.8 F Pulse Rate [Left Radial] 102 Pulse Rate 90 Respiratory Rate 23 Blood Pressure [Left Arm] 154/86 Blood Pressure 148/83 O2 Sat by Pulse Oximetry 100 Intake and Output: Intake & Output 04/20/20 04/21/20 04/22/20 04/23/20 11:59 11:59 11:59 11:59 Intake Total 1599 / 1599 400 / 400 2364 / 2564 200 / 200 Output Total 325 / 325 50 / 50 175 / 175 Balance 1274 / 1274 350 / 350 2189 / 2389 200 / 200 - Physical Exam Oriented: Not Oriented Eyes: Normal Ear: Normal Nose: Normal Throat: Normal Respiratory: Normal Cardiovascular: Normal : Normal Auscultation: Bowel Sounds: Normal Tenderness: Normal Skin: Normal Musculoskeletal: Normal Psychiatric: Other (DISORIENTATION) Mood Description: Calm Affect: Normal Speech Pattern: Clear, Appropriate - Laboratory and Diagnostics Result Diagrams: 04/22/20 04:35 04/22/20 04:35 Labs: 04/21/20 17:20 Urine,Clean Catch Urine Culture - Preliminary Laboratory WBC 8.9 X10^3/uL (3.6-10.0) 04/22/20 04:35 RBC 4.16 X10^6/uL (4.7-6.0) L 04/22/20 04:35 Hgb 14.0 g/dL (13.5-18.0) 04/22/20 04:35 Hct 41.8 % (42.0-54.0) L 04/22/20 04:35 MCV 100.5 fL (80.0-100.0) H 04/22/20 04:35 MCH 33.7 pg (27.0-34.0) 04/22/20 04:35 MCHC 33.5 g/dL (33.0-35.0) 04/22/20 04:35 RDW 13.3 % (11.6-16.5) 04/22/20 04:35 Plt Count 110 X10^3/uL (150.0-450.0) L 04/22/20 04:35 MPV 8.8 fL (7.4-11.0) 04/22/20 04:35 Neut % (Auto) 86.2 % (42.0-75.0) H 04/22/20 04:35 Lymph % (Auto) 8.6 % (21.0-51.0) L 04/22/20 04:35 [place] % (Auto) 5.1 % (0.0-13.0) 04/22/20 04:35 Eos % (Auto) 0.0 % (0.9-2.9) L 04/22/20 04:35 Baso % (Auto) 0.1 % (0.2-1.0) L 04/22/20 04:35 Neut # (Auto) 7.7 x10^3/uL (2.2-4.8) H 04/22/20 04:35 Lymph # (Auto) 0.8 X10^3/uL (1.3-2.9) L 04/22/20 04:35 [place] # (Auto) 0.5 x10^3/uL (0.3-0.8) 04/22/20 04:35 Eos # (Auto) 0.0 x10^3/uL (0.0-0.2) 04/22/20 04:35 Baso # (Auto) 0.0 X10^3/uL (0.0-0.1) 04/22/20 04:35 Absolute Nucleated RBC 0.0 /100WBC 04/22/20 04:35 PT 14.4 SECONDS (11.8-14.3) 04/18/20 04:30 INR Target Range - 04/18/20 04:30 INR 1.16 (0.8-1.3) 04/18/20 04:30 APTT 29.2 SECONDS (22.9-36.5) 04/18/20 04:30 PTT Comment - 04/18/20 04:30 D-Dimer 0.44 ug/ml (0.0-0.57) 04/18/20 04:30 Sample Site [facility] 04/18/20 08:50 ABG pH 7.430 (7.35-7.45) 04/18/20 08:50 ABG pCO2 41.0 mmHg (35.0-45.0) 04/18/20 08:50 ABG pO2 83.0 mmHg (80.0-100.0) 04/18/20 08:50 ABG HCO3 27.2 mmol/L (22-26) H 04/18/20 08:50 ABG O2 Saturation 96.0 % (90-100) 04/18/20 08:50 ABG Base Excess 2.6 mmol/L (-2.0-2.0) H 04/18/20 08:50 Alon Test N/a 04/18/20 08:50 A-a Gradient 15.0 mmHg 04/18/20 08:50 FiO2 21.0 04/18/20 08:50 Blood Gas Comments Pt андрей well elj 04/18/20 08:50 Sodium 139 mmol/L (136-145) 04/22/20 04:35 Corrected Sodium 141 mmol/L (136-145) 04/22/20 04:35 Potassium 4.0 mmol/L (3.5-5.1) 04/22/20 04:35 Chloride 104 mmol/L (98-107) 04/22/20 04:35 Carbon Dioxide 25.5 mmol/L (21-32) 04/22/20 04:35 BUN 33 mg/dL (7-18) H 04/22/20 04:35 Creatinine 1.16 mg/dL (0.70-1.30) 04/22/20 04:35 Est GFR (MDRD) Af Amer > 60 (>60) 04/22/20 04:35 Est GFR (MDRD) Non-Af > 60 (>60) 04/22/20 04:35 Glucose 189 mg/dL (65-99) H 04/22/20 04:35 POC Glucose (mg/dL) 171 mg/dL (65-99) H 04/22/20 11:13 Calcium 8.6 mg/dL (8.5-10.1) 04/22/20 04:35 Corrected Calcium TNP 04/22/20 04:35 Magnesium 1.8 mg/dL (1.7-2.9) 04/18/20 04:30 Ferritin 349 ng/mL (26-388) 04/18/20 04:30 Total Bilirubin 1.00 mg/dL (0.2-1.0) 04/22/20 04:35 AST 25 Units/L (15-37) 04/22/20 04:35 ALT 36 Units/L (12-78) 04/22/20 04:35 Alkaline Phosphatase 40 Units/L (46-116) L 04/22/20 04:35 Creatine Kinase 85 Units/L (39-308) 04/18/20 04:30 CK-MB (CK-2) 1.9 ng/mL (0-4.0) 04/18/20 04:30 CK/CKMB % Calc 2.2 % (<4) 04/18/20 04:30 Troponin I < 0.02 ng/mL (0-1.5) 04/18/20 04:30 C-Reactive Protein 0.70 mg/L (0-3.0) 04/22/20 04:35 B-Natriuretic Peptide 249 pg/mL (0-79) H 04/18/20 04:30 Total Protein 6.2 g/dL (6.4-8.2) L 04/22/20 04:35 Albumin 3.5 g/dL (3.4-5.0) 04/22/20 04:35 Globulin 2.7 g/dL (2.5-4.5) 04/22/20 04:35 Albumin/Globulin Ratio 1.3 Ratio (1.1-2.1) 04/22/20 04:35 Specimen Type Clean catch urine 04/17/20 15:37 Urine Color Dark yellow (YELLOW) 04/17/20 15:37 Urine Appearance Hazy (CLEAR) 04/17/20 15:37 Urine pH 5.0 (5.0 - 8.0) 04/17/20 15:37 Ur Specific [place] 1.025 (1.000-1.030) 04/17/20 15:37 Urine Protein 3+ (NEGATIVE) 04/17/20 15:37 Urine Glucose (UA) Negative (NEGATIVE) 04/17/20 15:37 Urine Ketones 1+ (NEGATIVE) 04/17/20 15:37 Urine Occult Blood Negative (NEGATIVE) 04/17/20 15:37 Urine Nitrite Negative (NEGATIVE) 04/17/20 15:37 Urine Bilirubin Negative (NEGATIVE) 04/17/20 15:37 Urine Urobilinogen 2+ (NORMAL) 04/17/20 15:37 Ur Leukocyte Esterase 1+ (NEGATIVE) 04/17/20 15:37 Urine RBC 0-2 /HPF (0-3) 04/17/20 15:37 Urine WBC 5-10 /HPF (0-5) A 04/17/20 15:37 Ur Squamous Epith Cells Moderate /HPF (NEGATIVE) 04/17/20 15:37 Calcium Oxalate Crystal Moderate /HPF (NEGATIVE) 04/17/20 15:37 Amorphous Sediment 2+ /HPF (NEGATIVE) 04/17/20 15:37 Urine Bacteria Negative /HPF (NEGATIVE) 04/17/20 15:37 Urine Mucus Moderate /HPF (NEGATIVE) 04/17/20 15:37 Ur Culture Indicated? No/not indicated 04/17/20 15:37 Salicylates < 2.8 mg/dL (2.8-20) L 04/17/20 15:05 Urine Opiates Screen Positive (NEG=<300) 04/17/20 15:37 Urine Methadone Screen Negative (NEG=<300) 04/17/20 15:37 Acetaminophen 0.0 ug/mL (10-30) L 04/17/20 15:05 Ur Barbiturates Screen Negative (NEG=<200) 04/17/20 15:37 Ur Phencyclidine Scrn Negative (NEG=<25) 04/17/20 15:37 Ur Amphetamines Screen Negative (NEG=<1000) 04/17/20 15:37 U Benzodiazepines Scrn Positive (NEG=<200) 04/17/20 15:37 Urine Cocaine Screen Negative (NEG=<300) 04/17/20 15:37 U Marijuana (THC) Screen Negative (NEG=<50) 04/17/20 15:37 Ethyl Alcohol mg/dL < 3 mg/dL (0-19.9) 04/17/20 15:05 SARS CoV-2 RNA Rapid MALIKA Positive (NEGATIVE) A 04/21/20 11:02 - Plan (1) COVID-19 Status: Acute Plan: SUPPLEMENTAL OXYGEN, REMDESIVIR 100MG IV DAILY, INVANZ 1G IV DAILY, IVERMECTIN 21MG PO Q72H, LOVENOX, RESUME HOME MEDS (2) New onset atrial fibrillation Status: Acute 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
[2020-04-22] MEDS ORDERED: BUTT CREAM (COMPOUND) ONE (17:02)
[2020-04-22] MEDS ORDERED: BUTT CREAM (COMPOUND) TOP PRN (17:04)
[2020-04-22] MEDS: ARTIFICIAL TEARS DROPS AFFEYE SCH ×2 (17:42→20:05)
[2020-04-22] MEDS: ASPIRIN EC 81 MG PO SCH (20:06)
[2020-04-22] MEDS: AVODART PO SCH (20:07)
[2020-04-22] MEDS: FLOMAX PO SCH (20:07)
[2020-04-22] MEDS: SEROquel TAB 25 mg PO SCH (20:09)
[2020-04-22] MEDS: TOPROL XL PO SCH (20:09)
[2020-04-22] MEDS: ZOCOR TAB 20 MG PO SCH (20:10)
[2020-04-22] MEDS: VALIUM PO SCH (20:10)
[2020-04-22] MEDS: SNACK - Diabetic Appropriate PO SCH (20:11)
[2020-04-23 05:11] LABS: BASOPHILS % (AUTO) 0.2 % (0.2-1.0); HEMOGLOBIN 13.9 g/dL (13.5-18.0); LYMPHOCYTES # (AUTO) 0.8 X10^3/uL (1.3-2.9); LYMPHOCYTES % (AUTO) 10.3 % (21.0-51.0); MEAN CORPUSCULAR HEMOGLOBIN 33.8 pg (27.0-34.0); MEAN CORPUSCULAR HGB CONC 33.8 g/dL (33.0-35.0); MEAN CORPUSCULAR VOLUME 99.9 fL (80.0-100.0); MEAN PLATELET VOLUME 9.1 fL (7.4-11.0); MONOCYTES # (AUTO) 0.3 x10^3/uL (0.3-0.8); MONOCYTES % (AUTO) 4.4 % (0.0-13.0); NEUTROPHILS # (AUTO) 6.4 x10^3/uL (2.2-4.8); NEUTROPHILS % (AUTO) 85.1 % (42.0-75.0); PLATELET COUNT 108 X10^3/uL (150.0-450.0); RED CELL DISTRIBUTION WIDTH 13.6 % (11.6-16.5); WHITE BLOOD COUNT 7.5 X10^3/uL (3.6-10.0)
[2020-04-23 05:25] LABS: ALANINE AMINOTRANSFERASE 31 Units/L (12-78); ALBUMIN 3.1 g/dL (3.4-5.0); ALKALINE PHOSPHATASE 40 Units/L (46-116); ASPARTATE AMINO TRANSFERASE 15 Units/L (15-37); BLOOD UREA NITROGEN 30 mg/dL (7-18); CALCIUM 8.4 mg/dL (8.5-10.1); CARBON DIOXIDE 26.1 mmol/L (21-32); CHLORIDE 103 mmol/L (98-107); COR CA(FOR HYPOALB) 9.1 mg/dL (8.5-10.1); COR NA(FOR HYPERGLY) 142 mmol/L (136-145); CREATININE 1.01 mg/dL (0.70-1.30); SODIUM 138 mmol/L (136-145); TOTAL PROTEIN 5.7 g/dL (6.4-8.2); eGFR NON BLACK RACES > 60 (>60)
[2020-04-23] MEDS: SOLU-Medrol 40 MG VIAL IVP SCH (06:08)
[2020-04-23] MEDS: HumuLIN R SUBCUT PRN ×3 (06:09→20:13)
--- NOTE | 2020-04-23 06:14 | RAD ---
HISTORYShortness of breathSTUDYChest AP [id number] is rotated to the right. The heart remains enlarged. Righ t heart border is prominent but unchanged. No definite infiltrates, congestive heart failure, or pleu ral effusions are identified. Coronary artery stents are again identified. There is a spinal cord sti mulator at the mid thoracic level.IMPRESSIONCardiomegaly without congestive heart failureNo definite infiltratesElectronically signed by: ANNA SOTO (Apr 23, 2020 06:13:20)
[2020-04-23] MEDS: DUONEB 0.5 MG/3 MG (3 mL) NEB SCH ×4 (07:50→21:23)
[2020-04-23] MEDS ORDERED: NS 250 ML IV 250 ML IV ONE (08:27)
[2020-04-23] MEDS: ZESTORETIC 10/ 12.5MG PO SCH (09:15)
[2020-04-23] MEDS: TAB-A-VITE PO SCH (09:15)
[2020-04-23] MEDS: INVANZ INJ 1 GM VIAL 1 GM in NS 100 ML IV + SPIKE MINIBAG* 100 ML IV SCH (09:15)
[2020-04-23] MEDS: LOVENOX INJ 40 MG SYR SC SCH ×2 (09:15→20:08)
[2020-04-23] MEDS: AMARYL TAB 4 MG PO SCH (09:15)
[2020-04-23] MEDS: MICRO K EXTEN CAP 10 MEQ PO SCH (09:15)
[2020-04-23] MEDS: ZYLOPRIM PO SCH (09:15)
[2020-04-23] MEDS: OSCAL+D or CALTRATE+D PO SCH (09:15)
[2020-04-23] MEDS: ARTIFICIAL TEARS DROPS AFFEYE SCH ×4 (09:15→20:07)
--- NOTE | 2020-04-23 10:12 | PCM.PROG ---
Progress Note - Progress Note for Day of Date of Exam: 04/23/20 - Subjective Subjective: IS BEING TREATED FOR PNEUMONIA DUE TO COVID-19, NEW ONSET A-FIB, A URINARY TRACT INFECTION, AND ALTERED MENTAL STATUS. HIS PMH INCLUDES HYPERTENSION, DIABETES MELLITIS II, BPH, LUMBAR SPONDYLOSIS. HE INITIALL TESTED POSITIVE FOR COVID-19 ON 03/19/2020. HE CONTINUES WITH DISORIENTATION AND HALLUCINATIONS, HOWEVER, STAFF REPORTS THAT HE RESTED WELL THROUGHOUT THE NIGHT. HE CONTINUES TO BE DROWSY THIS MORNING. ON EXAMINATION, HEART IS REGULAR IN RATE AND RHYTHM. BILATERAL LUNGS ARE NOTED WITH DIMINISHED LUNG SOUNDS THROUGHOUT. ABDOMEN IS ROUND, SOFT, AND NON-TENDER WITH NORMAL BOWEL SOUNDS NOTED IN ALL QUADRANTS. HIS VITALS THIS MORNING ARE: 98.8-90-20-99%-134/81. LABS WERE OBTA INED. ABNORMAL LAB VALUES INCLUDE THE FOLLOWING: RBC 4.10, HCT 41.0, PLT COUNT 108, BUN 30, GLUCOSE 251, CALCIUM 8.4, ALK PHOS 40, BNP 226, TOTAL PROTEIN 5.7, ALBUMIN 3.1. URINE CULTURES ARE PENDING. A CHEST XRAY WAS OBTAINED AND REVEALED: Cardiomegaly without congestive heart failure. No definite infiltrates. HE IS CURRENTLY RECEIVING NORMAL SALINE AT 50 ML/HR, REMDESIVIR 100MG IV DAILY, INVANZ 1G IV DAILY, SEROQUEL 25MG PO HS, HUMULIN R SLIDING SCALE, SOLU-MEDROL 40MG IV Q8H, AND LOVENOX. HIS HOME MEDICATIONS OF ALLOPURINOL 100MG PO DAILY, ASA 81MG PH HS, VALIUM 10MG PO HS, AVODART 0.5MG PO HS, AMARYL 4MG PO DAILY, NORCO 1 TAB PO Q6H PRN, ZESTORETIC 1 TAB PO DAILY, TOPROL XL 50MG PO HS, MULTI VITAMIN DAILY, NITROSTAT 0.4MG SL Q5M PRN, MICRO K 10MEQ PO DAILY, ZOCOR 20MG PO HS, AND FLOMAX 0.4MG PO HS WERE RESUMED. TODAY, WE WILL DISCONTINUE THE SOLU-MEDROL AND VALIUM. OTHERWISE, WE PLAN TO FOLLOW UP WITH LABS AND CONTINUE TO MONITOR. TIME SPENT ON CLINICAL ASSESSMENT, REVIEWING LABS AND IMAGING, DECISION MAKING, AND DOCUMENTATION GREATER THAN 75 MINUTES. - Past Medical Family Social History Past Med/Fam/Surg Hx: No changes since H&P Allergies: Allergies No Known Drug Allergies Allergy (Verified 04/17/20 14:52) - Review of Systems ROS: No change since H&P - Vital Signs and I&O's Vital Signs: Temperature 98.8 F Pulse Rate [Left Radial] 96 Pulse Rate 98 Respiratory Rate 19 Blood Pressure [Left Arm] 129/78 Blood Pressure 148/83 O2 Sat by Pulse Oximetry 100 Intake and Output: Intake & Output 04/20/20 04/21/20 04/22/20 04/23/20 11:59 11:59 11:59 11:59 Intake Total 1599 / 1599 400 / 400 2364 / 2564 2256 / 2256 Output Total 325 / 325 50 / 50 175 / 175 600 / 600 Balance 1274 / 1274 350 / 350 2189 / 2389 1656 / 1656 - Physical Exam Oriented: Not Oriented Eyes: Normal Ear: Normal Nose: Normal Throat: Normal Respiratory: Normal Cardiovascular: Normal : Normal Auscultation: Bowel Sounds: Normal Tenderness: Normal Skin: Normal Musculoskeletal: Normal Psychiatric: Other (DISORIENTATION) Mood Description: Calm Affect: Normal Speech Pattern: Clear, Appropriate - Laboratory and Diagnostics Result Diagrams: 04/23/20 04:25 04/23/20 04:25 Labs: 04/21/20 17:20 Urine,Clean Catch Urine Culture - Preliminary Laboratory WBC 7.5 X10^3/uL (3.6-10.0) 04/23/20 04:25 RBC 4.10 X10^6/uL (4.7-6.0) L 04/23/20 04:25 Hgb 13.9 g/dL (13.5-18.0) 04/23/20 04:25 Hct 41.0 % (42.0-54.0) L 04/23/20 04:25 MCV 99.9 fL (80.0-100.0) 04/23/20 04:25 MCH 33.8 pg (27.0-34.0) 04/23/20 04:25 MCHC 33.8 g/dL (33.0-35.0) 04/23/20 04:25 RDW 13.6 % (11.6-16.5) 04/23/20 04:25 Plt Count 108 X10^3/uL (150.0-450.0) L 04/23/20 04:25 MPV 9.1 fL (7.4-11.0) 04/23/20 04:25 Neut % (Auto) 85.1 % (42.0-75.0) H 04/23/20 04:25 Lymph % (Auto) 10.3 % (21.0-51.0) L 04/23/20 04:25 [place] % (Auto) 4.4 % (0.0-13.0) 04/23/20 04:25 Eos % (Auto) 0.0 % (0.9-2.9) L 04/23/20 04:25 Baso % (Auto) 0.2 % (0.2-1.0) 04/23/20 04:25 Neut # (Auto) 6.4 x10^3/uL (2.2-4.8) H 04/23/20 04:25 Lymph # (Auto) 0.8 X10^3/uL (1.3-2.9) L 04/23/20 04:25 [place] # (Auto) 0.3 x10^3/uL (0.3-0.8) 04/23/20 04:25 Eos # (Auto) 0.0 x10^3/uL (0.0-0.2) 04/23/20 04:25 Baso # (Auto) 0.0 X10^3/uL (0.0-0.1) 04/23/20 04:25 Absolute Nucleated RBC 0.1 /100WBC 04/23/20 04:25 PT 14.4 SECONDS (11.8-14.3) 04/18/20 04:30 INR Target Range - 04/18/20 04:30 INR 1.16 (0.8-1.3) 04/18/20 04:30 APTT 29.2 SECONDS (22.9-36.5) 04/18/20 04:30 PTT Comment - 04/18/20 04:30 D-Dimer 0.44 ug/ml (0.0-0.57) 04/18/20 04:30 Sample Site [facility] 04/18/20 08:50 ABG pH 7.430 (7.35-7.45) 04/18/20 08:50 ABG pCO2 41.0 mmHg (35.0-45.0) 04/18/20 08:50 ABG pO2 83.0 mmHg (80.0-100.0) 04/18/20 08:50 ABG HCO3 27.2 mmol/L (22-26) H 04/18/20 08:50 ABG O2 Saturation 96.0 % (90-100) 04/18/20 08:50 ABG Base Excess 2.6 mmol/L (-2.0-2.0) H 04/18/20 08:50 Alon Test N/a 04/18/20 08:50 A-a Gradient 15.0 mmHg 04/18/20 08:50 FiO2 21.0 04/18/20 08:50 Blood Gas Comments Pt андрей well elj 04/18/20 08:50 Sodium 138 mmol/L (136-145) 04/23/20 04:25 Corrected Sodium 142 mmol/L (136-145) 04/23/20 04:25 Potassium 4.3 mmol/L (3.5-5.1) 04/23/20 04:25 Chloride 103 mmol/L (98-107) 04/23/20 04:25 Carbon Dioxide 26.1 mmol/L (21-32) 04/23/20 04:25 BUN 30 mg/dL (7-18) H 04/23/20 04:25 Creatinine 1.01 mg/dL (0.70-1.30) 04/23/20 04:25 Est GFR (MDRD) Af Amer > 60 (>60) 04/23/20 04:25 Est GFR (MDRD) Non-Af > 60 (>60) 04/23/20 04:25 Glucose 251 mg/dL (65-99) H 04/23/20 04:25 POC Glucose (mg/dL) 264 mg/dL (65-99) H 04/22/20 19:39 Calcium 8.4 mg/dL (8.5-10.1) L 04/23/20 04:25 Corrected Calcium 9.1 mg/dL (8.5-10.1) 04/23/20 04:25 Magnesium 1.8 mg/dL (1.7-2.9) 04/18/20 04:30 Ferritin 349 ng/mL (26-388) 04/18/20 04:30 Total Bilirubin 0.70 mg/dL (0.2-1.0) 04/23/20 04:25 AST 15 Units/L (15-37) 04/23/20 04:25 ALT 31 Units/L (12-78) 04/23/20 04:25 Alkaline Phosphatase 40 Units/L (46-116) L 04/23/20 04:25 Creatine Kinase 85 Units/L (39-308) 04/18/20 04:30 CK-MB (CK-2) 1.9 ng/mL (0-4.0) 04/18/20 04:30 CK/CKMB % Calc 2.2 % (<4) 04/18/20 04:30 Troponin I < 0.02 ng/mL (0-1.5) 04/18/20 04:30 C-Reactive Protein < 0.50 mg/L (0-3.0) 04/23/20 04:25 B-Natriuretic Peptide 226 pg/mL (0-79) H 04/23/20 04:25 Total Protein 5.7 g/dL (6.4-8.2) L 04/23/20 04:25 Albumin 3.1 g/dL (3.4-5.0) L 04/23/20 04:25 Globulin 2.6 g/dL (2.5-4.5) 04/23/20 04:25 Albumin/Globulin Ratio 1.2 Ratio (1.1-2.1) 04/23/20 04:25 Specimen Type Clean catch urine 04/17/20 15:37 Urine Color Dark yellow (YELLOW) 04/17/20 15:37 Urine Appearance Hazy (CLEAR) 04/17/20 15:37 Urine pH 5.0 (5.0 - 8.0) 04/17/20 15:37 Ur Specific [place] 1.025 (1.000-1.030) 04/17/20 15:37 Urine Protein 3+ (NEGATIVE) 04/17/20 15:37 Urine Glucose (UA) Negative (NEGATIVE) 04/17/20 15:37 Urine Ketones 1+ (NEGATIVE) 04/17/20 15:37 Urine Occult Blood Negative (NEGATIVE) 04/17/20 15:37 Urine Nitrite Negative (NEGATIVE) 04/17/20 15:37 Urine Bilirubin Negative (NEGATIVE) 04/17/20 15:37 Urine Urobilinogen 2+ (NORMAL) 04/17/20 15:37 Ur Leukocyte Esterase 1+ (NEGATIVE) 04/17/20 15:37 Urine RBC 0-2 /HPF (0-3) 04/17/20 15:37 Urine WBC 5-10 /HPF (0-5) A 04/17/20 15:37 Ur Squamous Epith Cells Moderate /HPF (NEGATIVE) 04/17/20 15:37 Calcium Oxalate Crystal Moderate /HPF (NEGATIVE) 04/17/20 15:37 Amorphous Sediment 2+ /HPF (NEGATIVE) 04/17/20 15:37 Urine Bacteria Negative /HPF (NEGATIVE) 04/17/20 15:37 Urine Mucus Moderate /HPF (NEGATIVE) 04/17/20 15:37 Ur Culture Indicated? No/not indicated 04/17/20 15:37 Salicylates < 2.8 mg/dL (2.8-20) L 04/17/20 15:05 Urine Opiates Screen Positive (NEG=<300) 04/17/20 15:37 Urine Methadone Screen Negative (NEG=<300) 04/17/20 15:37 Acetaminophen 0.0 ug/mL (10-30) L 04/17/20 15:05 Ur Barbiturates Screen Negative (NEG=<200) 04/17/20 15:37 Ur Phencyclidine Scrn Negative (NEG=<25) 04/17/20 15:37 Ur Amphetamines Screen Negative (NEG=<1000) 04/17/20 15:37 U Benzodiazepines Scrn Positive (NEG=<200) 04/17/20 15:37 Urine Cocaine Screen Negative (NEG=<300) 04/17/20 15:37 U Marijuana (THC) Screen Negative (NEG=<50) 04/17/20 15:37 Ethyl Alcohol mg/dL < 3 mg/dL (0-19.9) 04/17/20 15:05 SARS CoV-2 RNA Rapid MALIKA Positive (NEGATIVE) A 04/21/20 11:02 - Plan (1) COVID-19 Status: Acute Plan: SUPPLEMENTAL OXYGEN, REMDESIVIR 100MG IV DAILY, INVANZ 1G IV DAILY, SEROQUEL 25MG PO HS, LOVENOX, RESUME HOME MEDS (2) New onset atrial fibrillation Status: Acute 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
[2020-04-23] MEDS: SNACK - Diabetic Appropriate PO SCH (20:07)
[2020-04-23] MEDS: ASPIRIN EC 81 MG PO SCH (20:08)
[2020-04-23] MEDS: FLOMAX PO SCH (20:08)
[2020-04-23] MEDS: AVODART PO SCH (20:08)
[2020-04-23] MEDS: TOPROL XL PO SCH (20:13)
[2020-04-23] MEDS: ZOCOR TAB 20 MG PO SCH (20:13)
[2020-04-23] MEDS: SEROquel TAB 25 mg PO SCH (20:13)
[2020-04-23] MEDS: NORCO 10/325 TAB PO PRN (20:27)
[2020-04-24 05:18] LABS: BASOPHILS % (AUTO) 0.3 % (0.2-1.0); HEMATOCRIT 41.7 % (42.0-54.0); HEMOGLOBIN 14.2 g/dL (13.5-18.0); LYMPHOCYTES # (AUTO) 1.6 X10^3/uL (1.3-2.9); LYMPHOCYTES % (AUTO) 18.6 % (21.0-51.0); MEAN CORPUSCULAR HEMOGLOBIN 34.1 pg (27.0-34.0); MEAN CORPUSCULAR VOLUME 100.3 fL (80.0-100.0); MEAN PLATELET VOLUME 8.9 fL (7.4-11.0); MONOCYTES # (AUTO) 0.7 x10^3/uL (0.3-0.8); MONOCYTES % (AUTO) 8.8 % (0.0-13.0); NEUTROPHILS % (AUTO) 72.3 % (42.0-75.0); PLATELET COUNT 107 X10^3/uL (150.0-450.0); RED BLOOD COUNT 4.16 X10^6/uL (4.7-6.0); RED CELL DISTRIBUTION WIDTH 13.5 % (11.6-16.5); WHITE BLOOD COUNT 8.3 X10^3/uL (3.6-10.0)
[2020-04-24 05:37] LABS: ALANINE AMINOTRANSFERASE 35 Units/L (12-78); ALKALINE PHOSPHATASE 50 Units/L (46-116); ASPARTATE AMINO TRANSFERASE 15 Units/L (15-37); BLOOD UREA NITROGEN 36 mg/dL (7-18); CALCIUM 8.3 mg/dL (8.5-10.1); CARBON DIOXIDE 28.1 mmol/L (21-32); CHLORIDE 104 mmol/L (98-107); COR CA(FOR HYPOALB) 9.1 mg/dL (8.5-10.1); COR NA(FOR HYPERGLY) 140 mmol/L (136-145); CREATININE 1.03 mg/dL (0.70-1.30); SODIUM 139 mmol/L (136-145); TOTAL PROTEIN 5.5 g/dL (6.4-8.2); eGFR NON BLACK RACES > 60 (>60)
[2020-04-24] MEDS: DUONEB 0.5 MG/3 MG (3 mL) NEB SCH ×2 (09:03→12:54)
[2020-04-24] MEDS: AMARYL TAB 4 MG PO SCH (09:11)
[2020-04-24] MEDS: MICRO K EXTEN CAP 10 MEQ PO SCH (09:11)
[2020-04-24] MEDS: ZESTORETIC 10/ 12.5MG PO SCH (09:11)
[2020-04-24] MEDS: ZYLOPRIM PO SCH (09:12)
[2020-04-24] MEDS: LOVENOX INJ 40 MG SYR SC SCH (09:12)
[2020-04-24] MEDS: INVANZ INJ 1 GM VIAL 1 GM in NS 100 ML IV + SPIKE MINIBAG* 100 ML IV SCH (09:12)
[2020-04-24] MEDS: OSCAL+D or CALTRATE+D PO SCH (09:12)
[2020-04-24] MEDS: TAB-A-VITE PO SCH (09:12)
[2020-04-24] MEDS: ARTIFICIAL TEARS DROPS AFFEYE SCH ×2 (09:13→14:54)
[2020-04-24 14:53] VITALS: BP 123/72
[2020-05-18] MEDS ORDERED: NEXTERONE IV 150 MG PREMIX* 150 MG/100 ML BAG IV ONE (13:07)
== END 2020-04-24 16:44 | disposition home health service (06) ==
LOC: ER 14:39 → OBS 14:39 → ER 21:47 → ICU 04-18 12:58
PROVIDERS: ADMIT Internal Medicine; ATTEND Internal Medicine
DX: J12.81 Pneumonia due to SARS-associated coronavirus; I51.7 Cardiomegaly; R40.4 Transient alteration of awareness; N40.0 Benign prostatic hyperplasia without lower urinary tract symptoms; I48.91 Unspecified atrial fibrillation; E78.00 Pure hypercholesterolemia, unspecified; M47.816 Spondylosis without myelopathy or radiculopathy, lumbar region; I10 Essential (primary) hypertension; I25.10 Atherosclerotic heart disease of native coronary artery without angina pectoris; R44.1 Visual hallucinations; R26.2 Difficulty in walking, not elsewhere classified; R06.02 Shortness of breath; U07.1 COVID-19; R44.0 Auditory hallucinations; N30.00 Acute cystitis without hematuria